=== PATIENT | male | born 1950 | race Caucasian/White ===

== ENCOUNTER 2016-07-30 03:58 | Inpatient (IN) | payer BC, MEDICARE ==
--- NOTE | ~2016-07-30 | OP ---
Record Of Operation [facility] [place]. [address] NAME: MILAN FOLEY : 46 STATUS : ADM IN PAT#: [id number] AGE: 66 ADM/REG DATE : 07/30/16 MR#: [id number] REPORT SERV DATE: 08/05/16 DICTATED BY: MORGAN VEGA DATE: 08/04/16 REPORT STATUS : Draft TRANSCRIBED BY: MODL DATE: 08/04/16 DATE OF PROCEDURE: 08/04/2016 ASSISTANTS: Deepak Anthony. ANESTHESIOLOGIST: Jonn Arias M.D. PREOPERATIVE DIAGNOSES: 1. Unstable angina. 2. Three-vessel coronary disease. 3. Chronic atrial fibrillation. 4. Chronic kidney disease stage IV, status post right nephrectomy. 5. Diabetes mellitus. 6. Morbid obesity. 7. Chronic obstructive pulmonary disease. 8. Hypertension. 9. Hyperlipidemia. 10.Obstructive sleep apnea. 11.Chronic anemia. POSTOPERATIVE DIAGNOSES: 1. Unstable angina. 2. Three-vessel coronary disease. 3. Chronic atrial fibrillation. 4. Chronic kidney disease stage IV, status post right nephrectomy. 5. Diabetes mellitus. 6. Morbid obesity. 7. Chronic obstructive pulmonary disease. 8. Hypertension. 9. Hyperlipidemia. 10.Obstructive sleep apnea. 11.Chronic anemia. OPERATION/PROCEDURE PERFORMED: 1. Median sternotomy. 2. Extracorporeal circulation. 3. Urgent coronary artery bypass grafting x4, left internal mammary artery, left anterior descending, reverse greater saphenous vein graft to ramus intermedius, reverse greater saphenous vein graft to posterior descending artery to PLB sequence graft. 4. Extensive right and left sided Maze, both cryo and PHILLIP or Shahid Maze IV. 5. Left atrial appendage ligation with a 15 mm left atrial appendage atrial clip. 6. Rigid external fixation of the sternum. 7. Prevena. 8. Attempted left subclavian Vas-Cath placement. COMPLICATIONS: None. Record Of Operation [facility] [address] [place]. [address] NAME: MILAN FOLEY : 48 STATUS : ADM IN PAT#: [id number] AGE: 66 ADM/REG DATE : 07/30/16 MR#: [id number] REPORT SERV DATE: 08/05/16 DICTATED BY: MORGAN VEGA DATE: 08/04/16 REPORT STATUS : Draft TRANSCRIBED BY: MODL DATE: 08/04/16 TUBES AND DRAINS: A 24-Moldovan Roberth to the left pleural space. A 32-Moldovan mediastinal chest tube. Atrial and ventricular pacing wires. POSTOPERATIVE CONDITION: To CVICU. DETAILS OF CROSS CLAMP: 85 minutes. Total cardiopulmonary bypass time 168 minutes. INTRAOPERATIVE FINDINGS: Transesophageal echo: Normal function, trace MR, no AI, no . Left atrium was approximately 5.5 to 6 cm. No clot in the left atrial appendage. Post bypass, the function was preserved. Anatomic findings extremely large heart. The aorta was very rightward in the chest. There were no graftable targets on the lateral wall and the obtuse marginal territory. He is not a redo candidate. I was unable to access the left subclavian vein. Multiple attempts were made with a needle; however, I was unable to find the vein. The right IJ and right subclavian vein were unable to be accessed by the anesthesiologist. The Brightwood was ultimately placed in the left IJ. DETAILS OF CARDIOPULMONARY BYPASS GRAFTIN. Graft #1, left internal mammary artery, left anterior descending was 1.75, diffusely diseased target that was intramyocardial. 2. Graft #2, reverse greater saphenous vein graft to ramus intermedius. This was a 2 mm target. 3. Reverse greater saphenous vein graft to posterior descending artery to posterolateral branch. PDA was 2 mm. PLB was approximately 1.75 mm. All grafts had excellent Doppler signals, both pre and post protamine. DETAILS OF STERNAL PLATING: The sternum was reapproximated using stainless steel sternal wires and then two X plates were placed on the body of the sternum and one L 100 degree plate was placed between the wires in the manubrium. A total of twenty 16 mm screws were used to place the plates. DETAILS OF MAZE: The Shahid Maze IV was done with a combination of RF and cryo. Pulmonary vein isolation was done with RF. The floor and roof of the left atrial appendage were done with cryo, the coronary sinus to mitral annulus. Lesion was done with cryo. The IVC to SVC lesion was done with cryo. The right atrial T lesion was done with cryo. The 2 o'clock tricuspid annulus lesion was done with cryo and a 50 mm left atrial appendage clip was placed on the left atrial appendage. INDICATIONS FOR PROCEDURE: The patient is a 66-year-old with a constellation of comorbid conditions, who presented to the hospital with unstable anginal symptoms and was found to have severe three-vessel coronary disease. Risks, benefits, and alternatives were discussed with the patient including but not limited to, bleeding, infection, stroke, , heart attack, need for future operations. All questions were answered. His M and M were calculated, a mortality of around 5%, STS mortality of about 5.8%, and a total morbidity and mortality of 45% were discussed with the patient. All questions were answered. DETAILS OF PROCEDURE: The patient was brought to the operating room and placed supine on the Record Of Operation [facility] [address] [facility] [place]. [address] NAME: MILAN FOLEY : 48 STATUS : ADM IN [facility]#: [id number] AGE: 66 ADM/REG DATE : 07/30/16 MR#: [id number] REPORT SERV DATE: 08/05/16 DICTATED BY: MORGAN VEGA DATE: 08/04/16 REPORT STATUS : Draft TRANSCRIBED BY: MOODY DATE: 08/04/16 operating room table. After satisfactory induction of general endotracheal anesthesia, he was prepped and draped in usual sterile fashion. Working simultaneously, endoscopic vein harvest was performed while median sternotomy was performed. A median sternotomy was performed. Internal mammary artery was harvested in a pedicle fashion. Systemic heparinization was achieved. The pericardium was opened. Pericardial well was created. The patient was cannulated for bypass. The conduit was brought up and prepared for bypass. Cardiopulmonary bypass was initiated after documentation of an adequate ACT. The maze lesions were performed as mentioned in the findings. After the completion of the maze lesions, the cross-clamp was brought up and the heart was arrested with cardioplegia and intermittent aliquots of cardioplegia were administered throughout the remainder of the cross clamp for every 15 to 20 minutes. The vein grafts were performed. The distal anastomoses were performed with 8-0 Surgipro. The reverse greater saphenous vein graft was sequenced to the posterior descending artery and the posterolateral branch. It was cut to length and spatulated and a running continuous anastomosis was done after making an aortotomy and enlarging it with a 5.2 mm punch. The reverse greater saphenous vein graft to the ramus intermedius was performed in the same fashion. The internal mammary artery was brought down through a wide V in the pericardium. The LAD was deep in the myocardium and epicardial fat was able to be found and was opened with what appeared to be an initially a relatively disease free area but was diffusely diseased along both lateral wall. A running continuous anastomosis was performed with 8-0 Surgipro. There was excellent flow in the graft proximal and distal to the anastomosis. The pedicle was attached to the heart in two places. The left atrial appendage clip was applied. Atrial and ventricular wires were placed. The vein grafts were de-aired, and the cross-clamp was removed. The patient was able to be weaned from cardiopulmonary bypass with a paced rhythm. Protamine was administered. PCC was administered as the patient had been on chronic Coumadin. INR was 1.7 this morning. Platelets were administered given the patient's coagulopathy, and hemostasis was obtained. The pericardium was loosely reapproximated using 2-0 silk. A 32- Moldovan chest tube was placed under the sternum. A 24-Moldovan Roberth was placed in the left pleural space. The sternum was reapproximated using stainless steel sternal wires and rigid external fixation of the sternum was performed using the SternaLock Biomet blue system as mentioned in the findings. The clavipectoral fascia was reapproximated using running #1 StrataFix. The subcutaneous tissues were closed using running #1 StrataFix and the skin closed using 2-0 Quill. Prevena dressing was placed. Attention was turned to the left subclavian area. The finer needle for the Vas-Cath was brought up and multiple attempts were made to access the subclavian vein through an infraclavicular approach and was unable to find the vein, ultimately abandoned the attempt as I did not want to cause vascular problems. Dry sterile dressings were placed, and the patient was transferred to CVICU in stable condition. WMC/MODL Morgan Vega MD / [id number] Record Of Operation [address] [place]. [address] NAME: MILAN FOLEY : 48 STATUS : ADM IN PAT#: [id number] AGE: 66 ADM/REG DATE : 07/30/16 MR#: [id number] REPORT SERV DATE: 08/05/16 DICTATED BY: MORGAN VEGA DATE: 08/04/16 REPORT STATUS : Draft TRANSCRIBED BY: MOODY DATE: 08/04/16 CC: MD Jonn Quan D.O.
--- NOTE | ~2016-07-30 | CN ---
Consultation Report [facility] [address] [place]. [address] NAME: DAVON FOLEY : 48 STATUS : ADM Kelvin PAT#: [id number] AGE: 66 ADM/REG DATE : 07/30/16 MR#: [id number] REPORT SERV DATE: 08/01/16 DICTATED BY: DATE: REPORT STATUS : Draft TRANSCRIBED BY: MODL DATE: 08/01/16 CONSULTATION DATE OF CONSULTATION: 08/01/2016 CHIEF COMPLAINT/REASON FOR CONSULT: High risk stress test. PRIMARY BEEKEEPER: Davon Anderson M.D., Ph.D, F.A.C.C. HISTORY OF PRESENT ILLNESS: Mr. Foley is a 66-year-old gentleman, who presented to the hospital, and was admitted on 07/30/2016, with chest discomfort. He states that on Sunday, he was mowing his grass and working in his garden, when he began to feel like somebody was sitting on his chest. He described this is 8 to 10/10 in intensity and was associated with shortness of breath. It was unclear duration, but he states that his symptoms started to improve after he came to the hospital. He notes a feeling of phlegm in his throat, but no chronic cough. PAST MEDICAL HISTORY: 1. Chronic atrial fibrillation on anticoagulation with Coumadin therapy. 2. Chronic kidney disease stage 3-4, baseline creatinine between 2.5 and 3.1. 3. History of renal cell carcinoma, status post right nephrectomy. The patient has a Gómez developed fistula on the left. 4. Diabetes mellitus. 5. Morbid obesity. 6. COPD. 7. Hypertension. 8. Hyperlipidemia. 9. Obstructive sleep apnea. 10.Anemia. 11.Chronic anticoagulation therapy. SOCIAL HISTORY: The patient is . His is present at the bedside. He denies smoking, drinking, or using extracurricular drugs. FAMILY HISTORY: Significant for father with a history of diabetes and hypertension. Mother with diabetes and hypertension, and a sister with myocardial infarction and history of breast cancer. ALLERGIES: NO KNOWN DRUG ALLERGIES. OUTPATIENT MEDICATIONS: 1. Bumetanide 1 mg twice per day. 2. Coreg 12.5 mg b.i.d. 3. Cetirizine. Consultation Report [facility] [id number] [place]. [address] NAME: DAVON FOLEY : 48 STATUS : ADM Kelvin PAT#: [id number] AGE: 66 ADM/REG DATE : 07/30/16 MR#: [id number] REPORT SERV DATE: 08/01/16 DICTATED BY: DATE: REPORT STATUS : Draft TRANSCRIBED BY: MOODY DATE: 08/01/16 4. Cholecalciferol. 5. Clotrimazole. 6. Fenofibrate 200 mg p.o. daily. 7. Oxycodone and acetaminophen. 8. Allopurinol. 9. Insulin, Levemir, and NovoLog. 10.Cozaar 100 mg p.o. daily. 11.Montelukast. 12.Multivitamin. 13.Protonix. 14.Pravastatin 40 mg p.o. daily. 15.Demadex 20 mg p.o. daily. 16.Iron. 17.Jantoven 3 mg p.o. daily. REVIEW OF SYSTEMS: All systems were reviewed and is negative except for dictated in the HPI. PHYSICAL EXAMINATION: VITAL SIGNS: Temperature 98.1, pulse 88, blood pressures range between 99 and 129/54 to 60, respirations 17, oxygen saturations 94% on room air. GENERAL: Mr. Foley is an irritable 66-year-old gentleman, who is in no distress. NECK: I could not appreciate jugular venous distention. No carotid bruits. HEART: Irregular, rate controlled. Soft S1 and S2. I could not appreciate murmurs, rubs, or gallops. LUNGS: Clear to auscultation in the anterior valdez. They are decreased bilaterally in the posterior valdez. ABDOMEN: Obese and nontender. I could not appreciate hepatosplenomegaly, due to body habitus. There is a reducible umbilical hernia noted. EXTREMITIES: Femoral pulses could not be palpated, due to body habitus. I could not appreciate femoral bruits. There is chronic venous induration noted bilaterally and +1 pitting edema bilaterally. NEUROLOGIC: I could not appreciate neurologic deficits. MUSCULOSKELETAL: No clubbing or cyanosis of the digits. DATA: A myocardial perfusion stress test performed that was a two day study finished on 08/01/2016, demonstrated posterolateral and apical ischemia, with a post infusion EF of 52%, with a high risk stress test. An EKG performed is extremely poor quality, but suggested atrial fibrillation that is rate controlled, an incomplete right bundle branch block, a left axis deviation, and poor R-wave progression. Laboratory results noted blood sugars between 256 and 404, white blood cell count 11.6, hemoglobin 11.8, hematocrit 35.9, platelet count 114, INR is 1.6, sodium 134, potassium 4, BUN 64, creatinine 3.01. Troponin 0.05 x2, BNP is 431, hemoglobin A1c is 8.3. A chest x-ray performed on admission documented cardiomegaly and low lung volumes. Consultation Report [facility] [id number] [place]. [address] NAME: DAVON FOLEY : 48 STATUS : ADM Kelvin PAT#: [id number] AGE: 66 ADM/REG DATE : 07/30/16 MR#: [id number] REPORT SERV DATE: 08/01/16 DICTATED BY: DATE: REPORT STATUS : Draft TRANSCRIBED BY: MOODY DATE: 08/01/16 IMPRESSION REPORT AND PLAN: 1. Anginal chest pain. 2. High risk stress test. 3. Chronic atrial fibrillation with subtherapeutic INR. 4. Uncontrolled diabetes mellitus. 5. Morbid obesity. 6. History of renal cell cancer, status post nephrectomy. 7. Chronic kidney disease, stage 3 to 4. 8. Hypertension. 9. Hyperlipidemia. RECOMMENDATIONS: 1. I discussed the risks, benefits, and alternatives of cardiac catheterization with the patient and his , who are agreeable to proceed at this time. 2. Would continue Coreg at this time. 3. Would hold Coumadin, Bumex, and torsemide at this time. 4. Would hold the patient's Cozaar, due to risk of progression and need for dialysis. 5. Decrease aspirin 81 mg p.o. daily. 6. The patient should he need dialysis, already he has a fully developed fistula via his left wrist. 7. Would keep n.p.o. after midnight. 8. I would request no LV-gram performed please. 9. Add low-dose Norvasc. 10.Additional recommendations pending clinical course. CULLEN/MOODY Charito Pedraza M.D. / [id number] CC: Antwan Gooden D.O.
--- NOTE | ~2016-07-30 | IDS ---
Interim Discharge Summary [facility] [address] [place]. [address] NAME: MILAN FOLEY : 48 STATUS : ADM IN PAT#: [id number] AGE: 66 ADM/REG DATE : 07/30/16 MR#: [id number] REPORT SERV DATE: 08/14/16 DICTATED BY: LISA HINDS DATE: 08/14/16 REPORT STATUS : Draft TRANSCRIBED BY: MODYvon DATE: 08/14/16 ADMISSION DATE: 07/30/2016 DISCHARGE DATE: This dictation is an addition to interim discharge summary dictated by Dr. Dominguez on 08/07/2016. I assumed care of the patient 08/08/2016. At the time of my assumption of care, the patient was status post CABG. The patient under my care has remained hemodynamically stable. Has been followed by CT Surgery. He continues to do well. Physical Therapy has also been seeing the patient. Per PT recommendation, the patient is to be discharged to rehab. Case Management has been consulted and currently working on placement for the patient. All other information in the interim discharge summary remains the same. DIEGO Lisa Hinds MD / [id number]
--- NOTE | ~2016-07-30 | PUL ---
[facility] [address] [place]. [address] NAME: MILAN FOLEY : 48 STATUS : ADM IN PAT#: [id number] AGE: 66 ADM/REG DATE : 07/30/16 MR#: [id number] REPORT SERV DATE: 08/04/16 DICTATED BY: EMILIA CRANE DATE: 08/04/16 REPORT STATUS : Draft TRANSCRIBED BY: MODL DATE: 08/04/16 PULMONARY FUNCTION TEST DIAGNOSIS: COPD. RESULTS: 1. FEV1 of 2.0 L (60% of predicted). 2. FVC 2.19 L (48% of predicted). 3. FEV1/FVC ratio of 92%. IMPRESSION: There is no evidence of obstruction. The forced vital capacity is reduced suggestive of restriction. PS/MODL Emilia Crane M.D. / [id number] CC: Loki Dominguez M.D.
--- NOTE | ~2016-07-30 | HP ---
History And Physical [address] [place]. [address] NAME: MILAN FOLEY : 48 STATUS : ADM Kelvin PAT#: [id number] AGE: 66 ADM/REG DATE : 07/30/16 MR#: [id number] REPORT SERV DATE: 07/30/16 DICTATED BY: ANTHONY DEJESUS DATE: 07/30/16 REPORT STATUS : Draft TRANSCRIBED BY: MODL DATE: 07/30/16 DATE OF ADMISSION: 07/30/2016 CHIEF COMPLAINT: A 66-year-old male presenting with shortness of breath and chest pain. HISTORY OF PRESENT ILLNESS: The patient's history was obtained through careful interview with the patient, , and daughter, coupled with review of [facility] medical records. The patient states that for a few days he has been having increasing shortness of breath characterized by dyspnea on exertion and a prominent wheeze. On the evening leading up to admission, he was running a tiller in his garden and began to develop chest pain as well. He describes chest discomfort at the center of his chest, radiating to the right side, quality "like someone sitting on me," 8/10 severity associated with worsening shortness of breath. He describes a nonproductive cough, some nausea, but no vomiting. No lightheadedness. No fevers or chills. He has chronic stable lymphedema. He claims his diabetes is under good control with blood sugars mostly under 200s. REVIEW OF SYSTEMS: Otherwise, a 14-point review of systems was obtained and was negative. PAST MEDICAL HISTORY: 1. Diabetes. 2. COPD. 3. Atrial fibrillation seen by Dr. Anderson. 4. Chronic kidney disease, stage 4. Baseline creatinine of 2.5 to 3.1, seen by Dr. Love. 5. Obstructive sleep apnea, noncompliant with CPAP, but uses nasal cannula oxygen. 6. Renal cell carcinoma of the right side status post nephrectomy in 2005. 7. Neuropathy. 8. Cellulitis. 9. DVT. 10.E. coli sepsis. 11.Gout. PAST SURGICAL HISTORY: 1. Right nephrectomy in 2005. 2. Left ankle surgery. 3. Spinal cord stimulator placement. 4. Left knee surgery. ALLERGIES: NO KNOWN DRUG ALLERGIES. History And Physical [address] [place]. [address] NAME: MILAN FOLEY : 48 STATUS : ADM Kelvin PAT#: [id number] AGE: 66 ADM/REG DATE : 07/30/16 MR#: [id number] REPORT SERV DATE: 07/30/16 DICTATED BY: ANTHONY DEJESUS DATE: 07/30/16 REPORT STATUS : Draft TRANSCRIBED BY: MOODY DATE: 07/30/16 SOCIAL HISTORY: Quit smoking more than 30 years ago. No alcohol abuse. He is . Has children. Retired from driving a truck. Ambulates with a cane. FAMILY HISTORY: Includes diabetes, blood clots, end-stage renal disease. CURRENT MEDICATIONS: 1. Allopurinol 100 mg p.o. b.i.d. 2. Bumex 1 mg p.o. b.i.d. 3. Coreg 12.5 mg p.o. daily. 4. Zyrtec 10 mg p.o. daily. 5. Vitamin D. 6. Clotrimazole cream. 7. Fenofibrate. 8. Hydrocodone 7.5 mg. 9. Sliding-scale insulin. 10.Levemir. 11.Losartan 100 mg p.o. daily. 12.Singulair 10 mg p.o. daily. 13.Multivitamin daily. 14.Protonix 40 mg p.o. daily. 15.Pravachol 40 mg p.o. daily. 16.Demadex 20 mg p.o. daily. 17.Iron supplement. 18.Coumadin 3 mg p.o. daily. PHYSICAL EXAMINATION: VITAL SIGNS: Temperature 98.2, pulse 97, blood pressure 109/56, respiratory rate 28, and O2 saturation 95% on room air. GENERAL: An ill-appearing male, in evidence of mild strain and distress because of breathing difficulty. HEENT: Pupils equal, round, and reactive to light. No conjunctival pallor. No scleral icterus. Nares are patent. Oropharynx is clear of obstruction. Moist mucous membranes. NECK: Trachea midline. No thyromegaly. LYMPH: No cervical lymphadenopathy. No supraclavicular lymphadenopathy. RESPIRATORY: Chronic sounding crackles throughout lung exam, and inspiratory and expiratory wheezes with upper respiratory rhonchi as well. No focal egophony. The patient has a labored respiratory effort. CARDIOVASCULAR: Regular rate and rhythm. No murmurs, rubs, or gallops. No extremity edema is appreciated other than chronic changes, right greater than left. ABDOMEN: Soft, nontender, and nondistended. Normal bowel sounds auscultated throughout. No hepatosplenomegaly. DERMATOLOGICAL: Warm and dry extremities. No pallor. No cyanosis. PSYCHIATRIC: Normal affect. Good mood. Alert and oriented x3. LABORATORY DATA: White blood cell count 14.5, hemoglobin 12.7, hematocrit 38.7, and platelets 140. History And Physical [address] [address] NAME: MILAN FOLEY : 48 STATUS : ADM Kelvin PAT#: [id number] AGE: 66 ADM/REG DATE : 07/30/16 MR#: [id number] REPORT SERV DATE: 07/30/16 DICTATED BY: ANTHONY DEJESUS DATE: 07/30/16 REPORT STATUS : Draft TRANSCRIBED BY: MODL DATE: 07/30/16 Sodium 137, potassium 4.7, chloride 102, bicarb 29, BUN 52, creatinine 2.74, and glucose 264. Troponin 0.05. INR 1.6. STUDIES: 1. Chest x-ray by my own evaluation shows chronic stable interstitial lung disease. 2. EKG by my own evaluation shows atrial fibrillation, left axis deviation, incomplete right bundle-branch block. ASSESSMENT AND PLAN: 1. Chronic obstructive pulmonary disease exacerbation. Place on IV Solu-Medrol, Duo nebulizers. 2. Systemic inflammatory response syndrome. Start empiric IV antibiotics, Levaquin. Check procalcitonin. 3. Chest pain. Check a nuclear cardiac stress test. Place on aspirin. 4. Chronic kidney disease, stage 4 with right nephrectomy. 5. Chronic atrial fibrillation. Check telemetry. Pharmacy to dose Coumadin. 6. Uncontrolled diabetes. Check hemoglobin A1c. Continue basal insulin and aggressive sliding scale insulin. KPL/MODL Anthony Dejesus M.D. / [id number] CC: Antwan Gambino D.O.
--- NOTE | ~2016-07-30 | CN ---
Consultation Report [facility] [address] [place]. [address] NAME: MILAN FOLEY : 46 STATUS : ADM Kevlin PAT#: [id number] AGE: 66 ADM/REG DATE : 07/30/16 MR#: [id number] REPORT SERV DATE: 08/03/16 DICTATED BY: EMILIA KELLEY DATE: 08/03/16 REPORT STATUS : Draft TRANSCRIBED BY: MODL DATE: 08/03/16 PULMONARY CONSULTATION DATE OF CONSULTATION: 08/03/2016 REASON FOR CONSULTATION: Preoperative evaluation and recommendations prior to CABG planned for tomorrow. HISTORY OF PRESENT ILLNESS: Mr. Foley is a 66-year-old white male, former smoker, with a history of obstructive sleep apnea-off CPAP for years and possible COPD-on no medications, who offers a very limited history today. Per the available medical record, he was admitted with shortness of breath and wheezing as well as chest pain. Evaluation including a cardiac evaluation revealed significant coronary artery disease, so CABG is planned tomorrow and Pulmonary was consulted for recommendations and preoperative evaluation. The patient currently denies shortness of breath and wheezing. He denies a history of shortness of breath, cough, sputum production, fever, chills, night sweats, hemoptysis, or prior chest pain. He reports good exercise tolerance and states he can "walk as far as I want to" without any dyspnea. He has been on no pulmonary medications as noted above and is unsure if he has ever been diagnosed with COPD. He denies ever being treated with inhalers and denies prior pulmonary function testing. With regard to his history of obstructive sleep apnea, he states he had a sleep study many years ago and was initially on CPAP. He did not have problems with tolerating CPAP with the mask, but states he "got tangled up in the machine." He continued to wear as prescribed until "they went out of business." It is unclear why he discontinued CPAP or how long he used it. He is unsure if he found it beneficial. He does complain of fatigue and hypersomnolence. He has had prior general anesthesia and denies any associated pulmonary issues. He states his last general anesthesia was "years" ago. He is unable to give further details. PAST MEDICAL HISTORY: 1. Obstructive sleep apnea, off CPAP as described above. 2. Former smoker. 3. Possible COPD. 4. Atrial fibrillation. 5. Chronic kidney disease. 6. Diabetes mellitus. 7. Renal cell carcinoma with right nephrectomy in 2005. 8. Peripheral neuropathy. 9. Previous DVT. 10.Gout. 11.Prior left ankle surgery. 12.Left total knee arthroplasty. Consultation Report [facility] [id number] [place]. [address] NAME: MILAN FOLEY : 46 STATUS : ADM Kelvin PAT#: [id number] AGE: 66 ADM/REG DATE : 07/30/16 MR#: [id number] REPORT SERV DATE: 08/03/16 DICTATED BY: EMILIA KELLEY DATE: 08/03/16 REPORT STATUS : Draft TRANSCRIBED BY: MODL DATE: 08/03/16 13.Spinal cord stimulator implantation. 14.Hyperlipidemia. 15.Hypertension. 16.History of anemia. 17.Previous E coli sepsis. FAMILY HISTORY: He denies family history of pulmonary diseases. SOCIAL HISTORY: He smoked up to three packs of cigarettes per day for more than 10 years and quit approximately 30 years ago. He denies ethanol intake, past/present drug use, or chewing tobacco. He denies occupational exposures. He is and has two daughters. MEDICATIONS: Outpatient and inpatient medications were reviewed and are as documented in the record. He was on no pulmonary medications as an outpatient. ALLERGIES: HE DENIES MEDICATION ALLERGIES. REVIEW OF SYSTEMS: A limited system review was obtained and is as documented in the history of present illness. PHYSICAL EXAMINATION: VITAL SIGNS: Temperature 97.9 degrees, heart rate 70, blood pressure 147/60, respiratory rate 18, and oxygen saturation 94% on room air. GENERAL: Obese white male. Alert, oriented, no apparent distress. Lying in the bed. Speaking in full sentences. HEENT: Normocephalic. Atraumatic. There is no scleral icterus. The conjunctivae are clear. The oropharynx is clear and dry. NECK: Supple. No JVD or lymphadenopathy was noted. LUNGS: Fair effort. Diminished breath sounds at both bases. There are scattered faint expiratory wheezes in the upper lung valdez. There are no crackles or rhonchi. HEART: Regular rate and rhythm. No ectopy was noted. ABDOMEN: Obese. Soft. Nontender. There is mild distention. Bowel sounds are normal in all four quadrants. BILATERAL EXTREMITIES: There is 1+ pretibial edema with extensive stasis skin changes. There is no cyanosis or clubbing. NEUROLOGICAL: Limited exam was obtained and found to be nonfocal. SKIN: No acute rashes were noted. LABORATORY RESULTS: The labs were reviewed and are as documented in the record. Notable labs include a white blood cell count of 5.3. IMAGING: The chest x-ray done today revealed cardiomegaly, but no infiltrates or effusions. ASSESSMENT: Mr. Foley is a 66-year-old white male, former smoker, with a history of obstructive sleep apnea-on CPAP, and probable chronic obstructive pulmonary disease who is Consultation Report [facility] [id number] [facility] [place]. [address] NAME: MILAN FOLEY : 46 STATUS : ADM Kelvin PAT#: [id number] AGE: 66 ADM/REG DATE : 07/30/16 MR#: [id number] REPORT SERV DATE: 08/03/16 DICTATED BY: EMILIA KELLEY DATE: 08/03/16 REPORT STATUS : Draft TRANSCRIBED BY: MOODY DATE: 08/03/16 actively wheezing. A CABG is planned for tomorrow. He is at [id number] risk for postoperative pulmonary complications at this time, but would improve with additional pulmonary medications. This assessment is based on available information, and as noted, no prior pulmonary function testing is available. PLAN: 1. Recommend stating the patient on a nebulized steroid today. Budesonide 0.5 mg q.12 hours will be added to his regimen. 2. Scheduled DuoNeb every four hours. 3. Improve pulmonary toilet - EzPAP will be added to his regimen. He should have an incentive spirometer postoperatively. 4. I recommend DuoNeb or albuterol via nebulization just prior to induction of anesthesia. 5. I recommend supporting the patient with BiPAP if needed after extubation. 6. Supplemental oxygen should be added if the patient develops any hypoxia. 7. I recommend he have a bedside spirogram today if possible, but this should not change his recommendations or prevent him from having surgery. 8. We will request an overnight oximetry on room air tonight to assess for possible nocturnal hypoxia and evaluate for sleep apnea. He should have an outpatient polysomnogram after discharge. Thank you very much for this consultation. JAME/MOODY Emilia Kelley M.D. / [id number] CC: Antwan Gooden D.O.
--- NOTE | ~2016-07-30 | CN ---
Consultation Report [facility] [address] [place]. [address] NAME: MILAN FOLEY : 46 STATUS : ADM Kelvin PAT#: [id number] AGE: 66 ADM/REG DATE : 07/30/16 MR#: [id number] REPORT SERV DATE: 08/02/16 DICTATED BY: ARVIN REAL DATE: 08/02/16 REPORT STATUS : Draft TRANSCRIBED BY: MODL DATE: 08/02/16 CONSULT REPORT DATE OF CONSULTATION: 08/02/2016 REASON FOR CONSULTATION: Multivessel coronary artery disease. HISTORY OF PRESENT ILLNESS: This is a 66-year-old male with extensive past medical history including insulin-dependent type 2 diabetes mellitus, hypertension, obesity, COPD, CKD stage 4 with solitary kidney, atrial fibrillation on chronic Coumadin, and hyperlipidemia, who presented to the emergency room on 07/30/2016, with chest pain and mildly elevated troponin. He had a stress test performed on 07/31/2016, which was considered abnormal and he was taken to the cardiac catheterization today and found to have severe multivessel coronary artery disease including a 75% stenosis to his left main coronary artery; 50% proximal and 90% mid LAD stenosis; 100% stenosis to his first diagonal; 99% stenosis to his proximal left circumflex; 50% proximal to 75% distal RCA stenosis; 75% right PDA and 75% first RPO. LV gram was not performed due to the patient's chronic kidney disease and elevated creatinine. Ejection fraction per myocardial perfusion imaging scan was around 52%. Cardiothoracic Surgery was asked to evaluate the patient for coronary artery bypass grafting. Currently, the patient is recovering after arteriogram with no complaints of chest pain or shortness of breath. His and daughter are with him at the bedside. PAST MEDICAL HISTORY: 1. Insulin-dependent diabetes. 2. High blood pressure. 3. Obesity. 4. Obstructive sleep apnea. 5. COPD. 6. CKD stage III to stage IV. 7. Renal cell carcinoma, status post right nephrectomy. 8. Hyperlipidemia. 9. Anemia. 10.Chronic atrial fibrillation, on Coumadin. PAST SURGICAL HISTORY: Right nephrectomy in 2005. Left ankle surgery. Spinal cord stimulator. Left total knee arthroplasty. SOCIAL HISTORY: He is . Unemployed. No alcohol abuse, use of illicit drugs, or tobacco. FAMILY HISTORY: Type 2 diabetes mellitus, end-stage renal disease, and blood clots. ALLERGIES: NO KNOWN DRUG ALLERGIES. Consultation Report [facility] [address] [place]. [address] NAME: MILAN FOLEY : 46 STATUS : ADM Kelvin PAT#: [id number] AGE: 66 ADM/REG DATE : 07/30/16 MR#: [id number] REPORT SERV DATE: 08/02/16 DICTATED BY: ARVIN REAL DATE: 08/02/16 REPORT STATUS : Draft TRANSCRIBED BY: MOODY DATE: 08/02/16 HOME MEDICATIONS: 1. Allopurinol 100 mg p.o. twice a day. 2. Bumex 1 mg p.o. twice a day. 3. Carvedilol 12.5 mg p.o. daily. 4. Zyrtec 10 mg p.o. daily. 5. Vitamin D3 2000 units p.o. daily. 6. Clotrimazole as directed. 7. Lipofen 200 mg p.o. daily. 8. Hycet 7.5/325 as needed. 9. Insulin FlexPen as directed. 10.Levemir insulin as directed at bedtime. 11.Losartan 100 mg p.o. daily. 12.Singulair 10 mg p.o. daily. 13.Centrum 1 tab p.o. daily. 14.Protonix 40 mg p.o. daily. 15.Pravachol 40 mg p.o. at bedtime. 16.Demadex 20 mg p.o. daily. 17.Iron tablet 65 mg p.o. daily. 18.Warfarin 3 mg p.o. daily. REVIEW OF SYSTEMS: A 10-point review of systems was obtained and is negative other than HPI. PHYSICAL EXAMINATION: VITAL SIGNS: From today, temperature 97.5, heart rate 67, blood pressure 143/64, respiratory rate 20, and O2 saturation 94% on room air. GENERAL: Morbidly obese male, ill appearing, but in no acute distress. PSYCHIATRIC: Flat affect, talkative, and pleasant. NEUROLOGIC: Alert and oriented x3. Pupils are equal, round, and reactive to light and accommodation. He exhibits equal strength in bilateral upper extremities and bilateral lower extremities. HEENT: Head normocephalic and atraumatic. Sclerae clear. Nose midline with no abnormalities. Good dentition overall. NECK: Supple with no thyromegaly or lymphadenopathy. LUNGS: Clear to auscultation bilaterally. Diminished bases. CARDIAC: S1 and S2 with no murmurs, rubs, or gallops. Atrial fibrillation. ABDOMEN: Soft, obese, and nontender with active bowel sounds. EXTREMITIES: Free of cyanosis or clubbing. He has discoloration of his legs bilaterally distal to the knees with 1+ pitting edema. LAB DATA: White blood cell count 8.2, hemoglobin 12.2, hematocrit 37, and platelets 142. Sodium 136, potassium 4.2, chloride 103, bicarbonate 23, BUN 99, creatinine 2.6, and glucose 169. ASSESSMENT AND PLAN: This is a 66-year-old male with extensive past medical history as Consultation Report [address] [address] NAME: MILAN FOLEY : 46 STATUS : ADM Kelvin PAT#: [id number] AGE: 66 ADM/REG DATE : 07/30/16 MR#: [id number] REPORT SERV DATE: 08/02/16 DICTATED BY: ARVIN REAL DATE: 08/02/16 REPORT STATUS : Draft TRANSCRIBED BY: MOODY DATE: 08/02/16 mentioned above, admitted with chest pain, found to have severe wawj-sd-gikz vessel coronary artery disease, needs coronary artery bypass grafting. Currently awaiting echocardiogram and carotid ultrasound. I discussed the risks and benefits of coronary artery bypass grafting with the patient as well as his STS risk scores. STS risk stratification for him and this particular surgery include an overall mortality of 5.6% and a morbidity mortality of 42%. I discussed these findings in relation to his need for surgery and his expectations for recovery. The patient is willing to proceed; however, I will need to talk to Dr. Izaguirre as the patient is high risk. As for now, we will go ahead and get Nephrology to evaluate the patient as he has a history of chronic kidney disease and is likely to advance to end-stage renal disease. He does have a functioning left functioning fistula in his left forearm. We will also get bilateral lower extremity venous mapping to evaluate for a conduit. Thank you for the consultation. LAQUITA/MOODY Arvin Real NP / [id number] CC: Antwan Gooden D.O.
--- NOTE | ~2016-07-30 | IDS ---
Interim Discharge Summary [facility] [address] [place]. [address] NAME: MILAN FOLEY : 46 STATUS : ADM IN [facility]#: [id number] AGE: 66 ADM/REG DATE : 07/30/16 MR#: [id number] REPORT SERV DATE: 08/07/16 DICTATED BY: ELEANOR HENRIQUEZ DATE: 08/07/16 REPORT STATUS : Draft TRANSCRIBED BY: MODL DATE: 08/07/16 ADMISSION DATE: 07/30/2016 DISCHARGE DATE: CURRENT HOSPITAL DIAGNOSES: 1. Coronary artery disease, three-vessel disease, status post CABG x4 with right and left- sided maze. 2. Chronic atrial fibrillation. 3. Chronic kidney disease. 4. Chronic obstructive pulmonary disease. 5. Hypertension. CONSULTATIONS: Pulmonary, Cardiothoracic Surgery, EP, and Renal. PROCEDURES: 1. Abovementioned CABG with maze on 08/04. 2. Myocardial perfusion scan on 07/31, showing an EF of 52%. Posterolateral and apical ischemia noted. 3. Cardiac catheterization done on 08/02. 4. Echocardiogram done on 08/03, showing a normal LV systolic function, EF 55%, dilated left atrium, mild MR, normal right ventricular chamber size and systolic function. 5. Carotid done on 08/03, showing right carotid artery category 2 moderate stenosis, 50% to 69% stenosis; left category 1, less than 50%. CURRENT PHYSICAL FINDINGS AND HISTORY OF PRESENT ILLNESS: Please see initial dictated H and P by Dr. Jasso. In brief, the patient is a 66-year-old male with above medical history, who presented initially on 07/30 with complaints of chest pain and shortness of breath. Vital signs at the time of presentation 129/64, temp was 98.2. Laboratory, initial BMP showed a procalcitonin of 1.22. Initial creatinine was 2.74. Initial troponin was 0.05 with a repeat of 0.05. A1c was 8.3. BNP was 431. White count was 14.5, H and H were 12.7 and 35.2. INR was 1.6. Urinalysis was unremarkable. Chest x-ray showed mild vascular congestion. HOSPITAL COURSE: The patient was initially admitted with above diagnosis. He was initially in observation to Dr. Ventura, who felt he had a COPD exacerbation along with his complaint above. He was started on IV fluids, sliding scale insulin, Levaquin IV, aspirin, Solu- Medrol, and DuoNebs as well as electrolyte protocol. Dr. Ventura saw him the following day. Antibiotics and IV fluids were stopped, Levemir and NovoLog were changed, and he was given some Bumex. He was also continued on Coumadin with pharmacy to monitor. The following day, additional titration of his Levemir was done, and continued titration of his insulin was required. I took over his care on 08/01. His stress test had returned a high probability. Dr. Pedraza for Cardiology was consulted. It was recommended to proceed with cardiac catheterization, which the patient was agreeable to. Post cardiac cath, he was noted to have significant coronary disease. He was placed on heparin, and Cardiothoracic Surgery was consulted. Venous mapping, carotid ultrasound, echocardiogram, and consult to Pulmonary were requested and his Coumadin was held. Renal was also consulted to maximize his Interim Discharge Summary [address] [place]. [address] NAME: MILAN FOLEY : 46 STATUS : ADM IN PAT#: [id number] AGE: 66 ADM/REG DATE : 07/30/16 MR#: [id number] REPORT SERV DATE: 08/07/16 DICTATED BY: ELEANOR HENRIQUEZ DATE: 08/07/16 REPORT STATUS : Draft TRANSCRIBED BY: MOODY DATE: 08/07/16 situation prior to proceeding with bypass, which the patient underwent without significant difficulty. He was able to come off the vent easily. His only postop difficulty has been being pacer dependent. EP is currently seeing. Renal continued to follow, diurese, maintain urine output. Creatinine is rising, but they are following. He is maintained on an insulin drip postop, but is since transitioned back to nearly the full amount of his prior sliding scale. CURRENT PLAN AND DISPOSITION: He is still in the ICU pending resolution of his pacer dependency. He is tolerating p.o. Blood sugars are reasonably controlled. Renal is diuresing and following his creatinine. Cardiology and EP will continue to follow him for the heart issues. He has had no difficulty with COPD, and he will be transferred to the floor for continued care when he is no longer pacer dependent. RICKYF/MOODY Eleanor Henriquez M.D. / [id number] CC: Antwan Gooden D.O.
--- NOTE | ~2016-07-30 | CN ---
Consultation Report [facility] [address] [place]. [address] NAME: MILAN FOLEY : 46 STATUS : ADM Kelvin PAT#: [id number] AGE: 66 ADM/REG DATE : 07/30/16 MR#: [id number] REPORT SERV DATE: 08/02/16 DICTATED BY: LISA LOVE DATE: 08/02/16 REPORT STATUS : Draft TRANSCRIBED BY: MODL DATE: 08/02/16 CONSULTATION DATE OF CONSULTATION: 08/02/2016 REASON FOR CONSULTATION: CKD, stage 4. HISTORY OF PRESENT ILLNESS: Mr. Foley is a 66-year-old white male followed in our office by Dr. Love for CKD, stage 4. He has an AV fistula in place to the left wrist, and patient apparently has a baseline creatinine around 2.5, was in office last week and creatinine was 2.5 at that point, it is 2.5 today. He presented to the hospital with shortness of breath and chest pain. A stress test was undertaken which was high risk, therefore he underwent heart catheterization and found to have multivessel coronary artery disease today, he need a bypass which is going to take place next week. He states he has been doing well recently until this chest pain came on him. No dysuria or hematuria. No problems with worsening edema. PAST MEDICAL HISTORY: CKD stage 4, right nephrectomy for renal oncocytoma, diabetes, osteoarthritis, atrial fibrillation, morbid obesity, coronary artery disease, COPD, hyperlipidemia, hypertension, obstructive sleep apnea, and anemia. He has a left AV fistula in place. FAMILY MEDICAL HISTORY: No end-stage renal disease. Positive for hypertension, diabetes, and cardiovascular disease. SOCIAL HISTORY: He is , lives with . Has a history of tobacco use, [id number]. No alcohol or illicit drug use. ALLERGIES: NONE. MEDICATIONS: At the time of consultation, Zyloprim, Norvasc, aspirin, Lipitor, Bumex, Coreg, vitamin D, Lofibra, ferrous sulfate, guaifenesin, Claritin, Singulair, Theragran, Protonix, Pravachol, and Levemir. REVIEW OF SYSTEMS: 12-point review of systems obtained and negative with the exception that in HPI. PHYSICAL EXAMINATION: VITAL SINGS: Temperature 97.5, blood pressure 100/55, pulse 60, respiratory rate 16, O2 sats 98%. GENERAL: This is a pleasant, cooperative, overweight white male. He is awake, alert, and oriented x3. No acute distress. Answers questions appropriately. HEENT: Normocephalic and atraumatic. Conjunctivae clear. Sclerae anicteric. Pupils are equal and round. Oral mucosa is dry. Consultation Report [facility] [address] [place]. [address] NAME: MILAN FOLEY : 46 STATUS : ADM Kelvin PAT#: [id number] AGE: 66 ADM/REG DATE : 07/30/16 MR#: [id number] REPORT SERV DATE: 08/02/16 DICTATED BY: LISA LOVE DATE: 08/02/16 REPORT STATUS : Draft TRANSCRIBED BY: MOODY DATE: 08/02/16 NECK: Supple, thick. No neck vein distention. No lymphadenopathy. LUNGS: Respirations even and unlabored. Breath sounds clear to auscultation. HEART: Rate is regular. Heart tones distant. No murmur, rub, or gallop. ABDOMEN: Obese, soft and nontender. Bowel sounds active. No CVA tenderness. EXTREMITIES: With discoloration of peripheral vascular disease, with mild edema. No unusual rashes or skin lesions. NEURO: No focal deficits. Mood and affect, pleasant and appropriate. PERTINENT LABS AND X-RAYS: Sodium 136, potassium 4.2, chloride 103, CO2 of 23, BUN of 99, creatinine of 2.5, calcium 9.7. Total cholesterol 153 LDL 97, HDL 21, triglycerides 179. WBCs 8.2, H and H 12 and 37, platelets 142,000. IMPRESSION: 1. Chronic kidney disease, stage 4. 2. Multivessel coronary artery disease. 3. Left forearm AV fistula. 4. Solitary kidney. 5. Diabetes. 6. Hypertension. 7. Chronic obstructive pulmonary disease. PLAN: Kidney function is currently at baseline. We will follow lab work and urinary output post catheterization and plan is for bypass early next week. We will follow along with you. Losartan has already been placed on hold as Demadex. We will follow along with you. I did discuss the risk for progression to end-stage renal disease with bypass. We will follow along with you. Thank you for the consultation. DICTATED BY: MAXIME Osborn/MODL Lisa Love M.D. / [id number] CC: Antwan Gooden D.O.
--- NOTE | ~2016-07-30 | CN ---
Consultation Report [facility] [address] [place]. [address] NAME: DAVON FOLEY : 46 STATUS : ADM IN PAT#: [id number] AGE: 66 ADM/REG DATE : 07/30/16 MR#: [id number] REPORT SERV DATE: 08/07/16 DICTATED BY: NIMESH POWERS DATE: 08/07/16 REPORT STATUS : Draft TRANSCRIBED BY: MODL DATE: 08/07/16 ELECTROPHYSIOLOGY CONSULTATION DATE OF CONSULTATION: REQUESTING PROVIDER: Dr. Izaguirre. INDICATIONS: Bradycardia after Shahid-Maze IV. HISTORY OF PRESENT ILLNESS: Davon Foley is a 66-year-old man who was admitted on 07/30/2016 with COPD exacerbation. He went on to have a stress test that was read as a high risk study, went on to have coronary arteriography, bypass grafting and a Shahid-Maze IV. He has had postoperative ventricular pacing and Electrophysiology is consulted to evaluate for possible pacemaker. The patient does appear to have some chronic ongoing shortness of breath. No angina. He has fatigue and low energy. His underlying rhythm on the pacing wires is sinus bradycardia at 67 beats per minute with a first-degree AV delay and left axis deviation, right bundle-branch block conduction pattern. PAST MEDICAL HISTORY: Chronic atrial fibrillation, COPD, diabetes, solitary kidney, chronic kidney disease, recent diagnosis of CAD. MEDICATIONS: Allopurinol, amiodarone which is on hold, aspirin, Lipitor, fenofibrate, guaifenesin, insulin, Lopressor which is on hold, topical nitroglycerin, Protonix, Pravachol, Senokot, and Orazinc. SOCIAL HISTORY: No smoking. No alcohol. FAMILY HISTORY: Notable for diabetes and hypertension. REVIEW OF SYSTEMS: As per the HPI. Otherwise, all review of systems negative. PHYSICAL EXAMINATION: VITAL SIGNS: Blood pressure 123/93, pulse 98.9, respiratory rate is 18. GENERAL: Appears stated age, no distress. EYES: Sclerae anicteric, no arcus senilis. MOUTH: Oral mucosa moist, lips acyanotic. NECK: Jugular venous pressure normal, no carotid bruits. LUNGS: Have diffusely diminished breath sounds. CARDIAC: Regular. Mild bradycardia. Rub present. ABDOMEN: Obese, soft, nondistended, nontender. EXTREMITIES: Have 2+ edema. SKIN: Warm and dry. NEURO/PSYCH: Alert and oriented, nonfocal, mood appropriate. Consultation Report [facility] [address] [place]. [address] NAME: DAVON FOLEY : 46 STATUS : ADM IN PAT#: [id number] AGE: 66 ADM/REG DATE : 07/30/16 MR#: [id number] REPORT SERV DATE: 08/07/16 DICTATED BY: NIMESH POWERS DATE: 08/07/16 REPORT STATUS : Draft TRANSCRIBED BY: MODL DATE: 08/07/16 ELECTROCARDIOGRAM: Sinus rhythm, first-degree AV delay, right bundle-branch block conduction pattern, left axis deviation. DATA: Creatinine is 3.46, potassium is 5.3, hemoglobin is 9.5. IMPRESSION: 1. Sinus bradycardia after Shahid-Maze IV. 2. Chronic atrial fibrillation. 3. Coronary artery disease with bypass grafting. 4. Diabetes. 5. Chronic obstructive pulmonary disease. 6. Chronic kidney disease. RECOMMENDATIONS: Remain off metoprolol and amiodarone. Follow rhythm and rate. Hopefully avoid pacemaker. I have discussed the possibility with the family and patient. Repeat ECG in the a.m. GKB/MODL Nimesh Powers M.D. / [id number] CC: Antwan Gooden D.O.
--- NOTE | ~2016-07-30 | DS ---
Discharge Summary [facility] [address] [place]. [address] NAME: MILAN FOLEY : 46 STATUS : ADM IN PAT#: [id number] AGE: 66 ADM/REG DATE : 07/30/16 MR#: [id number] REPORT SERV DATE: 08/15/16 DICTATED BY: ELEANOR HENRIQUEZ DATE: 08/15/16 REPORT STATUS : Draft TRANSCRIBED BY: MODL DATE: 08/15/16 ADMISSION DATE: 07/30/2016 DISCHARGE DATE: 08/15/2016 FINAL HOSPITAL DIAGNOSES: 1. Coronary artery disease, status post CABG, status post maze. 2. Chronic atrial fibrillation. 3. Chronic kidney disease. 4. Chronic obstructive pulmonary disease. 5. Hypertension. CONSULTATIONS AND PROCEDURES: As dictated on interim summary on 08/07 by myself and 08/[address] Zuleta. CURRENT PHYSICAL FINDINGS AND HISTORY OF PRESENT ILLNESS: Please see initial dictated H and P by Dr. Jasso on 07/30 as well as above interim summaries already noted on 08/07 and 08/14. Back over the patient's care on 08/15 and will dictate from that point. The patient was approximately 10 days post bypass. Renal function had been stable with a creatinine today of 2.33, and admission creatinine was 2.74. He had recuperated well from his bypass and was ambulatory greater than 40 feet with PT. He was re-anticoagulated with Coumadin, although his INR was noted to be gradually rising. He was rate controlled on his Cordarone. [facility] was slowly titrating up his Coreg. Discussed with the patient and his , they feel they have adequate assistance and ability for caregivers at home. He did not wish to leave here from rehab. Pending any final recommendations from Nephrology and Cardiology, the patient will be discharged later today. DISPOSITION: He will be discharged home with home health and home PT. Followups will be arranged for [facility] Nephro and Cardiothoracic Surgery. He will follow up with his PCP thereafter. Arrangements are being made with [facility] for his Coumadin dose, followup INR, and continuation of his Cordarone. DISCHARGE MEDICATIONS: Other medications will be Plavix 75 one per day, hydrocodone 5/325 q.6 p.r.n. Prescriptions were written by myself for Lipitor 40 one per day, Cordarone 200 one per day, and Coreg 6.25 b.i.d. Other home medications will be allopurinol 100 b.i.d., vitamin C 1000 b.i.d., aspirin 81 one per day, Lipitor 40 one per day. He will discontinue his Pravachol 40. Cordarone 200 one per day, Coreg 6.25 b.i.d., vitamin D 2000 one per day, fenofibrate 200 one per day, insulin sliding scale level 3 with 5 units prior to meals, Zyrtec 10, Singulair 10, Protonix 40, Senokot p.r.n., Demadex 20 b.i.d., Levemir 20 b.i.d., multivitamin, iron, and [id number] athlete's foot cream. He will not resume his Cozaar at this time. DICTATED BY: Eleanor Henriquez M.D. TLF/MOODY Discharge Summary [address] [address] NAME: MILAN FOLEY : 46 STATUS : ADM IN PAT#: [id number] AGE: 66 ADM/REG DATE : 07/30/16 MR#: [id number] REPORT SERV DATE: 08/15/16 DICTATED BY: ELEANOR HENRIQUEZ DATE: 08/15/16 REPORT STATUS : Draft TRANSCRIBED BY: MOODY DATE: 08/15/16 Eleanor Henriquez M.D. / [id number] CC: MD Jonn Capellan D.O.
--- NOTE | ~2016-07-30 | PUL ---
[facility] [address] [place]. [address] NAME: MILAN FOLEY : 46 STATUS : ADM IN [facility]#: [id number] AGE: 66 ADM/REG DATE : 07/30/16 MR#: [id number] REPORT SERV DATE: 08/04/16 DICTATED BY: EMILIA CRANE DATE: 08/04/16 REPORT STATUS : Draft TRANSCRIBED BY: MODL DATE: 08/04/16 PULMONARY FUNCTION TEST OVERNIGHT OXIMETRY REPORT. START DATE OF TESTIN08/03/2016. END DATE OF TESTIN08/04/2016. COMMENTS: Testing was conducted with the patient breathing room air. The patient stated he did not sleep all night due to nursing interruptions. RESULTS: Total valid sampling time 5 hours 47 minutes and 40 seconds. Total time with an oxygen saturation less than 88% was 46 seconds. Oxygen desaturation event index 6.4. IMPRESSION: There was no significant desaturation during this study conducted with the patient breathing room air. The oxygen desaturation index was elevated suggestive of possible obstructive sleep apnea. Recommend sleep study to confirm if clinically indicated. As noted above, the patient did not sleep throughout the study. May benefit from repeat testing. PS/MOODY Emilia Crane M.D. / [id number] CC: Loki Dominguez M.D.
[2016-07-30 03:13] LABS: BASOPHILS 0.1 %; BASOPHILS ABSOLUTE 0.01 10/3/uL (0.0-0.16); EOSINOPHILS 0.1 %; EOSINOPHILS ABSOLUTE 0.02 10/3/uL (0.0-0.53); HEMATOCRIT 38.7 % (40.0-51.0); HEMOGLOBIN 12.7 g/dL (13.6-17.8); IMMATURE GRANULOCYTES 0.3 %; IMMATURE GRANULOCYTES ABSOLUTE 0.04 10/3/uL (0.0-0.11); LYMPHOCYTES 7.7 %; LYMPHOCYTES ABSOLUTE 1.11 10/3/uL (0.67-4.30); MEAN PLATELET VOLUME 11.2 fL (9.2-13.0); MONOCYTES 5.7 %; MONOCYTES ABSOLUTE 0.82 10/3/uL (0.21-1.20); NEUTROPHILS 86.1 %; NEUTROPHILS ABSOLUTE 12.48 10/3/uL (2.02-8.40); PLATELET COUNT 140 10/3/uL (150-400); RBC DISTRIBUTION WIDTH 15.3 % (12.0-16.0)
[2016-07-30 03:15] LABS: ER CBC TAT 0 Hrs 05 Mins; MANUAL DIFF NO %; MEAN CORPUS HGB CONC 32.8 g/dL (32.0-36.0); MEAN CORPUSCULAR HEMOGLOB 32.8 pg (26.0-34.0); RED CELL COUNT 3.87 10/6/uL (4.7-6.1); WHITE BLOOD CELLS 14.5 10/3/uL (4.5-10.5)
[2016-07-30 03:22] LABS: INTERNATIONAL NORMAL RATI 1.6 UNITS (-); PARTIAL THROMBO TIME 34.2 SEC (22.5-37.2); PROTIME (NOT ORD) 18.6 SEC (12.0-14.5)
[2016-07-30 03:30] LABS: BUN (BLOOD UREA NITROGEN) 52 MG/DL (6-23); CALCIUM, SERUM 9.4 MG/DL (8.5-10.4); CHLORIDE, SERUM 102 MMOL/L (96-112); CO2 (CARBON DIOXIDE) 29 MMOL/L (24-34); CREATININE 2.74 MG/DL (0.70-1.30); GFR AFRICAN AMERICAN 26 ML/MIN (>=60); GFR NON AFRICAN AMERICAN 23 ML/MIN (>=60); POTASSIUM, SERUM 4.7 MMOL/L (3.5-5.3); SODIUM, SERUM 137 MMOL/L (135-148)
[2016-07-30 03:31] LABS: CHEST PAIN PROFILE TAT 0 Hrs 21 Mins; GLUCOSE, SERUM 264 MG/DL (60-99); TROPONIN I 0.05 NG/ML (<0.05)
[~2016-07-30 03:58] MED LIST: ACTOS30 PO; AT25 PO; BUM1 PO; BUM2; BYETTA SC; BYETTA10 SC; CADUET10 MG/10 M PO; CARDU2 PO; CELEXA10 PO; CENTRUM TAB1 TAB PO; CINAMMON PO; COREG12 PO; COZ50 PO; DEMA10T PO; DEMA20 PO; DIABET2.5 PO; DIABETA5 PO; GLUCCHONDR PO; HYZAAR 100/25 T1 TAB PO; IRON325 MG PO; JANTOVEN4 MG PO; LEVEMFLXPN SC; LEVEMIR SC; LEXAPRO10 PO; LOFIBRA200 MG PO; LORT7 PO; LOZOLTAB PO; MULTI VIT; NEUR100 PO; NORCO1 TA2 PO; NORV10 PO; NOVOPEN SC; OSTEO BIFLEX; PRAVAC PO; PRAVACHOL40 MG PO; PROTONIX PO; ROCALTROL 0.0.25 MCG PO; ROCALTROL0.25 MCG OR; STARLIX120 PO; VIT D; VITAMIN D1000 UNI1 PO; VITAMIN D31000 UNIT PO; VITAMIN D400 UNI1 PO; [UNRECOGNIZED DRUG - OTHER] PO
[2016-07-30] MEDS ORDERED: DEMA20 PO ×2 (04:50→05:12)
[2016-07-30] MEDS ORDERED: SINGULAIR1 PO ×2 (04:50→05:13)
[2016-07-30] MEDS ORDERED: PROTONIX PO ×2 (04:51→05:13)
[2016-07-30] MEDS ORDERED: COREG12 PO ×2 (04:51→05:13)
[2016-07-30] MEDS ORDERED: LIPOFEN50 MG PO ×2 (04:56→05:14)
[2016-07-30] MEDS ORDERED: LOSARTAN POTASSIUM PO (04:57)
[2016-07-30] MEDS ORDERED: CENTRUM PO ×2 (04:57→05:15)
[2016-07-30] MEDS ORDERED: JANTOVEN3 MG PO ×2 (04:58→05:16)
[2016-07-30] MEDS ORDERED: VITAMIN D31000 UNIT PO ×2 (04:58→05:15)
[2016-07-30] MEDS ORDERED: BUM1 PO ×2 (04:59→05:19)
[2016-07-30] MEDS ORDERED: PRAVACHOL40 MG PO ×2 (04:59→05:19)
[2016-07-30] MEDS ORDERED: Z100 PO ×2 (05:00→05:20)
[2016-07-30] MEDS ORDERED: IRON PO ×2 (05:00→05:21)
[2016-07-30] MEDS ORDERED: LEVEMFLXPN SC ×2 (05:03→05:23)
[2016-07-30] MEDS ORDERED: ZYRTEC ALLGY10 MG PO (05:12)
[2016-07-30] MEDS ORDERED: COZAAR100 MG PO (05:14)
[2016-07-30] MEDS ORDERED: HYCET 7.5 MG-3473 ML PO (05:18)
[2016-07-30] MEDS ORDERED: [UNRECOGNIZED DRUG - OTHER] (05:22)
[2016-07-30] MEDS ORDERED: CLOTRIMAZOLE CREAM (05:23)
[2016-07-30] MEDS ORDERED: NOVOPEN SC (05:24)
[2016-07-30 09:07] LABS: BASOPHILS 0.2 %; BASOPHILS ABSOLUTE 0.02 10/3/uL (0.0-0.16); EOSINOPHILS 0.1 %; EOSINOPHILS ABSOLUTE 0.01 10/3/uL (0.0-0.53); HEMATOCRIT 35.2 % (40.0-51.0); HEMOGLOBIN 11.6 g/dL (13.6-17.8); IMMATURE GRANULOCYTES 0.2 %; IMMATURE GRANULOCYTES ABSOLUTE 0.02 10/3/uL (0.0-0.11); LYMPHOCYTES 7.1 %; LYMPHOCYTES ABSOLUTE 0.91 10/3/uL (0.67-4.30); MEAN CORPUSCULAR HEMOGLOB 32.5 pg (26.0-34.0); MEAN CORPUSCULAR VOLUME 98.6 fL (80-100); MONOCYTES 7.2 %; MONOCYTES ABSOLUTE 0.92 10/3/uL (0.21-1.20); NEUTROPHILS 85.2 %; NEUTROPHILS ABSOLUTE 10.95 10/3/uL (2.02-8.40); PLATELET COUNT 123 10/3/uL (150-400); RBC DISTRIBUTION WIDTH 15.3 % (12.0-16.0); RED CELL COUNT 3.57 10/6/uL (4.7-6.1); WHITE BLOOD CELLS 12.8 10/3/uL (4.5-10.5)
[2016-07-30 09:08] LABS: MANUAL DIFF NO %
[2016-07-30 09:14] LABS: INTERNATIONAL NORMAL RATI 1.6 UNITS (-); PARTIAL THROMBO TIME 36.6 SEC (22.5-37.2)
[2016-07-30 09:30] LABS: BUN (BLOOD UREA NITROGEN) 55 MG/DL (6-23); CALCIUM, SERUM 8.9 MG/DL (8.5-10.4); CHLORIDE, SERUM 104 MMOL/L (96-112); CO2 (CARBON DIOXIDE) 26 MMOL/L (24-34); CREATININE 2.85 MG/DL (0.70-1.30); GFR AFRICAN AMERICAN 25 ML/MIN (>=60); GFR NON AFRICAN AMERICAN 22 ML/MIN (>=60); GLUCOSE, SERUM 255 MG/DL (60-99); POTASSIUM, SERUM 3.9 MMOL/L (3.5-5.3); SGOT(AST) 94 U/L (5-40); SGPT(ALT) 76 U/L (5-65); SODIUM, SERUM 140 MMOL/L (135-148); TOTAL PROTEIN 6.7 G/DL (6.0-8.5)
[2016-07-30 09:31] LABS: A/G RATIO 0.7 (0.7-1.9); ALBUMIN 2.8 G/DL (3.5-5.0); ALKALINE PHOSPHATASE 122 U/L (45-117); CK-MB 1.5 NG/ML; CPK 139 U/L (0-200); GLOBULIN 3.9 G/DL (2.5-4.1); TOTAL BILIRUBIN 7.7 MG/DL (0-1.2); TROPONIN I 0.05 NG/ML (<0.05)
[2016-07-30 09:42] LABS: B NATRIURETIC PEPTIDE (BNP) 431.1 PG/ML (< 100.0)
[2016-07-30 10:42] LABS: PROCALCITONIN 1.22 ng/mL (<0.5)
[2016-07-30 13:15] LABS: GLYCOHEMOGLOBIN (HbA1c) 8.3 % (4.7-6.1)
[2016-07-31 05:06] LABS: BASOPHILS 0 %; EOSINOPHILS 0 %; HEMATOCRIT 35.9 % (40.0-51.0); HEMOGLOBIN 11.8 g/dL (13.6-17.8); IMMATURE GRANULOCYTES 0.2 %; IMMATURE GRANULOCYTES ABSOLUTE 0.02 10/3/uL (0.0-0.11); LYMPHOCYTES ABSOLUTE 0.58 10/3/uL (0.67-4.30); MEAN CORPUS HGB CONC 32.9 g/dL (32.0-36.0); MEAN CORPUSCULAR HEMOGLOB 32.1 pg (26.0-34.0); MEAN CORPUSCULAR VOLUME 97.6 fL (80-100); MEAN PLATELET VOLUME 11.6 fL (9.2-13.0); MONOCYTES 3.2 %; MONOCYTES ABSOLUTE 0.37 10/3/uL (0.21-1.20); NEUTROPHILS 91.6 %; NEUTROPHILS ABSOLUTE 10.64 10/3/uL (2.02-8.40); PLATELET COUNT 114 10/3/uL (150-400); RBC DISTRIBUTION WIDTH 15.2 % (12.0-16.0); RED CELL COUNT 3.68 10/6/uL (4.7-6.1); WHITE BLOOD CELLS 11.6 10/3/uL (4.5-10.5)
[2016-07-31 05:07] LABS: MANUAL DIFF NO %
[2016-07-31 05:15] LABS: INTERNATIONAL NORMAL RATI 1.6 UNITS (-); PROTIME (NOT ORD) 18.9 SEC (12.0-14.5)
[2016-07-31 05:17] LABS: CALCIUM, SERUM 9.3 MG/DL (8.5-10.4); CHLORIDE, SERUM 102 MMOL/L (96-112); CO2 (CARBON DIOXIDE) 24 MMOL/L (24-34); CREATININE 3.01 MG/DL (0.70-1.30); GFR AFRICAN AMERICAN 24 ML/MIN (>=60); GFR NON AFRICAN AMERICAN 20 ML/MIN (>=60); SODIUM, SERUM 134 MMOL/L (135-148)
[2016-07-31 05:21] LABS: BUN (BLOOD UREA NITROGEN) 64 MG/DL (6-23); GLUCOSE, SERUM 312 MG/DL (60-99)
[2016-08-01 04:44] LABS: INTERNATIONAL NORMAL RATI 1.6 UNITS (-)
[2016-08-02 05:37] LABS: BASOPHILS 0.1 %; BASOPHILS ABSOLUTE 0.01 10/3/uL (0.0-0.16); EOSINOPHILS 0.1 %; EOSINOPHILS ABSOLUTE 0.01 10/3/uL (0.0-0.53); HEMATOCRIT 37.1 % (40.0-51.0); HEMOGLOBIN 12.2 g/dL (13.6-17.8); IMMATURE GRANULOCYTES 0.2 %; IMMATURE GRANULOCYTES ABSOLUTE 0.02 10/3/uL (0.0-0.11); LYMPHOCYTES 12.3 %; LYMPHOCYTES ABSOLUTE 1.01 10/3/uL (0.67-4.30); MEAN CORPUS HGB CONC 32.9 g/dL (32.0-36.0); MEAN CORPUSCULAR HEMOGLOB 32.9 pg (26.0-34.0); MEAN PLATELET VOLUME 12.2 fL (9.2-13.0); MONOCYTES 5.1 %; MONOCYTES ABSOLUTE 0.42 10/3/uL (0.21-1.20); NEUTROPHILS 82.2 %; NEUTROPHILS ABSOLUTE 6.76 10/3/uL (2.02-8.40); PLATELET COUNT 142 10/3/uL (150-400); RBC DISTRIBUTION WIDTH 15.4 % (12.0-16.0); RED CELL COUNT 3.71 10/6/uL (4.7-6.1); WHITE BLOOD CELLS 8.2 10/3/uL (4.5-10.5)
[2016-08-02 05:39] LABS: MANUAL DIFF NO %
[2016-08-02 05:41] LABS: INTERNATIONAL NORMAL RATI 1.7 UNITS (-); PROTIME (NOT ORD) 20.1 SEC (12.0-14.5)
[2016-08-02 05:52] LABS: CALCIUM, SERUM 9.7 MG/DL (8.5-10.4); CHLORIDE, SERUM 103 MMOL/L (96-112); CO2 (CARBON DIOXIDE) 23 MMOL/L (24-34); CREATININE 2.58 MG/DL (0.70-1.30); GFR AFRICAN AMERICAN 28 ML/MIN (>=60); GFR NON AFRICAN AMERICAN 24 ML/MIN (>=60); POTASSIUM, SERUM 4.2 MMOL/L (3.5-5.3); SODIUM, SERUM 136 MMOL/L (135-148); TRIGLYCERIDE 179 MG/DL (< 150)
[2016-08-02 05:54] LABS: BUN (BLOOD UREA NITROGEN) 99 MG/DL (6-23); CHOL/HDL RATIO(NOT ORDER) 7.3 (0-5); CHOLESTEROL 153 MG/DL (< 200); GLUCOSE, SERUM 169 MG/DL (60-99); HDL CHOLESTEROL 21 MG/DL (> 39); LDL CHOLESTEROL 97 MG/DL (< 130); NON-HDL CHOLESTEROL 132 MG/DL (< 160)
[2016-08-02 20:33] LABS: ASCORBIC ACID (UR NOT ORDER) NEG (NEG); BILIRUBIN, URINE NEGATIVE (NEG); KETONE, URINE NEGATIVE (NEG); LEUKOCYTE ESTERASE(NOT OR NEG (NEG); WBC (NOT ORDERED) (RFLEX) 1 (0-5)
[2016-08-03 08:15] LABS: BASOPHILS 0.2 %; BASOPHILS ABSOLUTE 0.01 10/3/uL (0.0-0.16); EOSINOPHILS 1.9 %; HEMATOCRIT 38.1 % (40.0-51.0); HEMOGLOBIN 12.3 g/dL (13.6-17.8); IMMATURE GRANULOCYTES 0.2 %; IMMATURE GRANULOCYTES ABSOLUTE 0.01 10/3/uL (0.0-0.11); MEAN CORPUS HGB CONC 32.3 g/dL (32.0-36.0); MEAN CORPUSCULAR HEMOGLOB 32.4 pg (26.0-34.0); MEAN CORPUSCULAR VOLUME 100.3 fL (80-100); MEAN PLATELET VOLUME 11.9 fL (9.2-13.0); MONOCYTES 7.8 %; MONOCYTES ABSOLUTE 0.41 10/3/uL (0.21-1.20); NEUTROPHILS 72.9 %; NEUTROPHILS ABSOLUTE 3.86 10/3/uL (2.02-8.40); PLATELET COUNT 132 10/3/uL (150-400); RBC DISTRIBUTION WIDTH 15.6 % (12.0-16.0); WHITE BLOOD CELLS 5.3 10/3/uL (4.5-10.5)
[2016-08-03 08:16] LABS: MANUAL DIFF NO %
[2016-08-03 08:28] LABS: ALBUMIN 2.6 G/DL (3.5-5.0); CHLORIDE, SERUM 109 MMOL/L (96-112); CO2 (CARBON DIOXIDE) 24 MMOL/L (24-34); CREATININE 2.34 MG/DL (0.70-1.30); GFR AFRICAN AMERICAN 32 ML/MIN (>=60); GFR NON AFRICAN AMERICAN 28 ML/MIN (>=60); POTASSIUM, SERUM 4.4 MMOL/L (3.5-5.3)
[2016-08-03 08:29] LABS: BUN (BLOOD UREA NITROGEN) 91 MG/DL (6-23); GLUCOSE, SERUM 115 MG/DL (60-99); PHOSPHORUS, SERUM 3.5 MG/DL (2.5-4.5); SODIUM, SERUM 143 MMOL/L (135-148)
[2016-08-03 11:41] LABS: ASCORBIC ACID (UR NOT ORDER) NEG (NEG); BILIRUBIN, URINE NEGATIVE (NEG); KETONE, URINE NEGATIVE (NEG); LEUKOCYTE ESTERASE(NOT OR NEG (NEG); WBC (NOT ORDERED) (RFLEX) 1 (0-5)
[2016-08-04 04:33] LABS: BASOPHILS 0.2 %; BASOPHILS ABSOLUTE 0.01 10/3/uL (0.0-0.16); EOSINOPHILS 2.2 %; EOSINOPHILS ABSOLUTE 0.13 10/3/uL (0.0-0.53); HEMATOCRIT 37.1 % (40.0-51.0); IMMATURE GRANULOCYTES 0.7 %; IMMATURE GRANULOCYTES ABSOLUTE 0.04 10/3/uL (0.0-0.11); LYMPHOCYTES ABSOLUTE 0.99 10/3/uL (0.67-4.30); MEAN CORPUS HGB CONC 32.3 g/dL (32.0-36.0); MEAN CORPUSCULAR VOLUME 98.9 fL (80-100); MONOCYTES 6.8 %; NEUTROPHILS 73.1 %; NEUTROPHILS ABSOLUTE 4.27 10/3/uL (2.02-8.40); PLATELET COUNT 145 10/3/uL (150-400); RBC DISTRIBUTION WIDTH 15.4 % (12.0-16.0); RED CELL COUNT 3.75 10/6/uL (4.7-6.1); WHITE BLOOD CELLS 5.8 10/3/uL (4.5-10.5)
[2016-08-04 04:34] LABS: MANUAL DIFF NO %
[2016-08-04 04:43] LABS: INTERNATIONAL NORMAL RATI 1.7 UNITS (-); PROTIME (NOT ORD) 19.5 SEC (12.0-14.5)
[2016-08-04 04:45] LABS: PARTIAL THROMBO TIME 104.5 SEC (22.5-37.2)
[2016-08-04 04:54] LABS: % IRON SAT 40 % (20-50); A/G RATIO 0.7 (0.7-1.9); ALBUMIN 2.6 G/DL (3.5-5.0); BUN (BLOOD UREA NITROGEN) 93 MG/DL (6-23); CHLORIDE, SERUM 106 MMOL/L (96-112); CO2 (CARBON DIOXIDE) 24 MMOL/L (24-34); CREATININE 2.55 MG/DL (0.70-1.30); GFR AFRICAN AMERICAN 29 ML/MIN (>=60); GFR NON AFRICAN AMERICAN 25 ML/MIN (>=60); GLOBULIN 3.9 G/DL (2.5-4.1); GLUCOSE, SERUM 105 MG/DL (60-99); IRON BINDING CAPACITY 214 MCG/DL (250-450); IRON, SERUM 85 MCG/DL (35-150); PHOSPHORUS, SERUM 3.5 MG/DL (2.5-4.5); POTASSIUM, SERUM 4.2 MMOL/L (3.5-5.3); SGOT(AST) 48 U/L (5-40); SGPT(ALT) 49 U/L (5-65); SODIUM, SERUM 138 MMOL/L (135-148); TOTAL PROTEIN 6.5 G/DL (6.0-8.5)
[2016-08-04 04:56] LABS: ALKALINE PHOSPHATASE 97 U/L (45-117); TOTAL BILIRUBIN 2.1 MG/DL (0-1.2)
[2016-08-04 18:07] LABS: BE (BASE EXCESS) -3.2 MEQ/L (0 +/- 2.5); CARBOXYHEMOGLOBIN 0.6 % (0-3); HCO3 (ACTUAL BICARBONATE) 22.7 MEQ/L (23-27); HEMOBLOGIN CONTENT 12.3 G/DL (14-18); INSTRUMENT SERIAL # 11843; METHEMOGLOBIN 0.4 % (0-3); MODE SIMV; O2 CONTENT 17.5 VOL% (18-24); OPERATOR ID 35188; PCO2 (CO2 TENSION) 44 MMHG (35-45); PO2 (O2 TENSION) 271 MMHG (79-93); SAMPLE Arterial; pH 7.33 (7.37-7.43)
[2016-08-04 18:21] LABS: BASOPHILS 0 %; EOSINOPHILS 0.2 %; EOSINOPHILS ABSOLUTE 0.03 10/3/uL (0.0-0.53); HEMATOCRIT 35.2 % (40.0-51.0); HEMOGLOBIN 11.4 g/dL (13.6-17.8); IMMATURE GRANULOCYTES 0.6 %; IMMATURE GRANULOCYTES ABSOLUTE 0.09 10/3/uL (0.0-0.11); LYMPHOCYTES 4.3 %; LYMPHOCYTES ABSOLUTE 0.63 10/3/uL (0.67-4.30); MANUAL DIFF NO %; MEAN CORPUS HGB CONC 32.4 g/dL (32.0-36.0); MEAN CORPUSCULAR HEMOGLOB 32.2 pg (26.0-34.0); MEAN CORPUSCULAR VOLUME 99.4 fL (80-100); MEAN PLATELET VOLUME 11.5 fL (9.2-13.0); MONOCYTES 5.3 %; MONOCYTES ABSOLUTE 0.77 10/3/uL (0.21-1.20); NEUTROPHILS 89.6 %; NEUTROPHILS ABSOLUTE 13.07 10/3/uL (2.02-8.40); PLATELET COUNT 160 10/3/uL (150-400); RBC DISTRIBUTION WIDTH 15.5 % (12.0-16.0); RED CELL COUNT 3.54 10/6/uL (4.7-6.1); WHITE BLOOD CELLS 14.6 10/3/uL (4.5-10.5)
[2016-08-04 18:27] LABS: INTERNATIONAL NORMAL RATI 1.5 UNITS (-); PARTIAL THROMBO TIME 28.6 SEC (22.5-37.2); PROTIME (NOT ORD) 18.3 SEC (12.0-14.5)
[2016-08-04 18:38] LABS: CALCIUM, SERUM 8.5 MG/DL (8.5-10.4); CHLORIDE, SERUM 110 MMOL/L (96-112); CO2 (CARBON DIOXIDE) 24 MMOL/L (24-34); CREATININE 2.61 MG/DL (0.70-1.30); GFR AFRICAN AMERICAN 28 ML/MIN (>=60); GFR NON AFRICAN AMERICAN 24 ML/MIN (>=60); GLUCOSE, SERUM 113 MG/DL (60-99); SODIUM, SERUM 142 MMOL/L (135-148)
[2016-08-04 18:40] LABS: BUN (BLOOD UREA NITROGEN) 82 MG/DL (6-23); POTASSIUM, SERUM 5.1 MMOL/L (3.5-5.3)
[2016-08-04 19:28] LABS: FIBRINOGEN 290 MG/DL (230-462)
[2016-08-04 23:12] LABS: BE (BASE EXCESS) -4.6 MEQ/L (0 +/- 2.5); DEVICE NC; HCO3 (ACTUAL BICARBONATE) 21.6 MEQ/L (23-27); HEMOBLOGIN CONTENT 11.8 G/DL (14-18); INSTRUMENT SERIAL # 11843; METHEMOGLOBIN 0.2 % (0-3); O2 CONTENT 16.2 VOL% (18-24); OPERATOR ID 13415; PCO2 (CO2 TENSION) 44 MMHG (35-45); PO2 (O2 TENSION) 133 MMHG (79-93); SAMPLE Arterial; pH 7.31 (7.37-7.43)
[2016-08-04 23:49] LABS: HEMATOCRIT 33.2 % (40.0-51.0); HEMOGLOBIN 11.2 g/dL (13.6-17.8)
[2016-08-04 23:56] LABS: POTASSIUM, SERUM 5.4 MMOL/L (3.5-5.3)
[2016-08-05 04:20] LABS: BASOPHILS 0.1 %; BASOPHILS ABSOLUTE 0.01 10/3/uL (0.0-0.16); EOSINOPHILS 0 %; HEMATOCRIT 32.7 % (40.0-51.0); HEMOGLOBIN 10.6 g/dL (13.6-17.8); IMMATURE GRANULOCYTES 0.4 %; IMMATURE GRANULOCYTES ABSOLUTE 0.08 10/3/uL (0.0-0.11); LYMPHOCYTES 3.2 %; LYMPHOCYTES ABSOLUTE 0.62 10/3/uL (0.67-4.30); MEAN CORPUS HGB CONC 32.4 g/dL (32.0-36.0); MEAN CORPUSCULAR HEMOGLOB 32.2 pg (26.0-34.0); MEAN CORPUSCULAR VOLUME 99.4 fL (80-100); MEAN PLATELET VOLUME 11.9 fL (9.2-13.0); MONOCYTES 2.9 %; MONOCYTES ABSOLUTE 0.56 10/3/uL (0.21-1.20); NEUTROPHILS 93.4 %; NEUTROPHILS ABSOLUTE 17.86 10/3/uL (2.02-8.40); PLATELET COUNT 140 10/3/uL (150-400); RBC DISTRIBUTION WIDTH 15.9 % (12.0-16.0); RED CELL COUNT 3.29 10/6/uL (4.7-6.1); WHITE BLOOD CELLS 19.1 10/3/uL (4.5-10.5)
[2016-08-05 04:22] LABS: MANUAL DIFF NO %
[2016-08-05 04:32] LABS: ALBUMIN 2.9 G/DL (3.5-5.0); CALCIUM, SERUM 8.7 MG/DL (8.5-10.4); CHLORIDE, SERUM 111 MMOL/L (96-112); CO2 (CARBON DIOXIDE) 21 MMOL/L (24-34); GFR AFRICAN AMERICAN 27 ML/MIN (>=60); GFR NON AFRICAN AMERICAN 23 ML/MIN (>=60); GLUCOSE, SERUM 104 MG/DL (60-99); POTASSIUM, SERUM 4.9 MMOL/L (3.5-5.3); SODIUM, SERUM 141 MMOL/L (135-148)
[2016-08-05 04:34] LABS: BUN (BLOOD UREA NITROGEN) 90 MG/DL (6-23); PHOSPHORUS, SERUM 4.8 MG/DL (2.5-4.5)
[2016-08-05 15:29] LABS: HEMATOCRIT 30.9 % (40.0-51.0); HEMOGLOBIN 10.1 g/dL (13.6-17.8)
[2016-08-05 15:34] LABS: POTASSIUM, SERUM 4.6 MMOL/L (3.5-5.3)
[2016-08-06 03:10] LABS: BASOPHILS 0.1 %; BASOPHILS ABSOLUTE 0.01 10/3/uL (0.0-0.16); EOSINOPHILS 0 %; HEMATOCRIT 30.4 % (40.0-51.0); HEMOGLOBIN 10.1 g/dL (13.6-17.8); IMMATURE GRANULOCYTES 0.6 %; IMMATURE GRANULOCYTES ABSOLUTE 0.11 10/3/uL (0.0-0.11); LYMPHOCYTES ABSOLUTE 0.57 10/3/uL (0.67-4.30); MEAN CORPUS HGB CONC 33.2 g/dL (32.0-36.0); MEAN CORPUSCULAR HEMOGLOB 33.1 pg (26.0-34.0); MEAN CORPUSCULAR VOLUME 99.7 fL (80-100); MEAN PLATELET VOLUME 12.1 fL (9.2-13.0); MONOCYTES 6.4 %; MONOCYTES ABSOLUTE 1.21 10/3/uL (0.21-1.20); NEUTROPHILS 89.9 %; NEUTROPHILS ABSOLUTE 17.08 10/3/uL (2.02-8.40); PLATELET COUNT 161 10/3/uL (150-400); RBC DISTRIBUTION WIDTH 16.1 % (12.0-16.0); RED CELL COUNT 3.05 10/6/uL (4.7-6.1)
[2016-08-06 03:13] LABS: MANUAL DIFF NO %
[2016-08-06 03:52] LABS: ALBUMIN 3.2 G/DL (3.5-5.0); BUN (BLOOD UREA NITROGEN) 91 MG/DL (6-23); CALCIUM, SERUM 9.1 MG/DL (8.5-10.4); CHLORIDE, SERUM 105 MMOL/L (96-112); CO2 (CARBON DIOXIDE) 22 MMOL/L (24-34); CREATININE 2.97 MG/DL (0.70-1.30); GFR AFRICAN AMERICAN 24 ML/MIN (>=60); GFR NON AFRICAN AMERICAN 21 ML/MIN (>=60); GLUCOSE, SERUM 98 MG/DL (60-99); PHOSPHORUS, SERUM 6.5 MG/DL (2.5-4.5); SODIUM, SERUM 138 MMOL/L (135-148)
[2016-08-07 06:15] LABS: BASOPHILS 0 %; EOSINOPHILS 0 %; HEMATOCRIT 29.1 % (40.0-51.0); HEMOGLOBIN 9.5 g/dL (13.6-17.8); IMMATURE GRANULOCYTES 0.6 %; IMMATURE GRANULOCYTES ABSOLUTE 0.08 10/3/uL (0.0-0.11); LYMPHOCYTES 6.2 %; LYMPHOCYTES ABSOLUTE 0.88 10/3/uL (0.67-4.30); MEAN CORPUS HGB CONC 32.6 g/dL (32.0-36.0); MEAN CORPUSCULAR HEMOGLOB 32.4 pg (26.0-34.0); MEAN CORPUSCULAR VOLUME 99.3 fL (80-100); MEAN PLATELET VOLUME 11.5 fL (9.2-13.0); MONOCYTES 6.4 %; NEUTROPHILS 86.8 %; NEUTROPHILS ABSOLUTE 12.27 10/3/uL (2.02-8.40); PLATELET COUNT 118 10/3/uL (150-400); RBC DISTRIBUTION WIDTH 16.1 % (12.0-16.0); RED CELL COUNT 2.93 10/6/uL (4.7-6.1); WHITE BLOOD CELLS 14.1 10/3/uL (4.5-10.5)
[2016-08-07 06:16] LABS: MANUAL DIFF NO %
[2016-08-07 06:38] LABS: ALBUMIN 3.1 G/DL (3.5-5.0); CALCIUM, SERUM 8.8 MG/DL (8.5-10.4); CHLORIDE, SERUM 100 MMOL/L (96-112); CO2 (CARBON DIOXIDE) 20 MMOL/L (24-34); CREATININE 3.46 MG/DL (0.70-1.30); GFR AFRICAN AMERICAN 20 ML/MIN (>=60); GFR NON AFRICAN AMERICAN 17 ML/MIN (>=60); PHOSPHORUS, SERUM 6.2 MG/DL (2.5-4.5); POTASSIUM, SERUM 5.1 MMOL/L (3.5-5.3); SODIUM, SERUM 132 MMOL/L (135-148)
[2016-08-07 06:42] LABS: BUN (BLOOD UREA NITROGEN) 111 MG/DL (6-23); GLUCOSE, SERUM 180 MG/DL (60-99)
[2016-08-08 03:54] LABS: BASOPHILS 0 %; EOSINOPHILS 0.4 %; EOSINOPHILS ABSOLUTE 0.04 10/3/uL (0.0-0.53); HEMATOCRIT 27.3 % (40.0-51.0); IMMATURE GRANULOCYTES 1.1 %; IMMATURE GRANULOCYTES ABSOLUTE 0.12 10/3/uL (0.0-0.11); LYMPHOCYTES 9.9 %; LYMPHOCYTES ABSOLUTE 1.05 10/3/uL (0.67-4.30); MEAN CORPUSCULAR HEMOGLOB 32.8 pg (26.0-34.0); MEAN CORPUSCULAR VOLUME 99.6 fL (80-100); MEAN PLATELET VOLUME 11.4 fL (9.2-13.0); MONOCYTES ABSOLUTE 0.95 10/3/uL (0.21-1.20); NEUTROPHILS 79.6 %; NEUTROPHILS ABSOLUTE 8.44 10/3/uL (2.02-8.40); PLATELET COUNT 111 10/3/uL (150-400); RBC DISTRIBUTION WIDTH 15.8 % (12.0-16.0); RED CELL COUNT 2.74 10/6/uL (4.7-6.1); WHITE BLOOD CELLS 10.6 10/3/uL (4.5-10.5)
[2016-08-08 03:59] LABS: MANUAL DIFF NO %
[2016-08-08 04:10] LABS: ALBUMIN 2.8 G/DL (3.5-5.0); CALCIUM, SERUM 8.8 MG/DL (8.5-10.4); CHLORIDE, SERUM 102 MMOL/L (96-112); CO2 (CARBON DIOXIDE) 20 MMOL/L (24-34); CREATININE 3.59 MG/DL (0.70-1.30); GFR AFRICAN AMERICAN 19 ML/MIN (>=60); GFR NON AFRICAN AMERICAN 16 ML/MIN (>=60); GLUCOSE, SERUM 152 MG/DL (60-99); PHOSPHORUS, SERUM 5.8 MG/DL (2.5-4.5); POTASSIUM, SERUM 4.8 MMOL/L (3.5-5.3); SODIUM, SERUM 133 MMOL/L (135-148)
[2016-08-08 04:11] LABS: BUN (BLOOD UREA NITROGEN) 117 MG/DL (6-23)
[2016-08-08 14:37] LABS: ALBUMIN 2.8 G/DL (3.5-5.0); CALCIUM, SERUM 8.6 MG/DL (8.5-10.4); CHLORIDE, SERUM 99 MMOL/L (96-112); CO2 (CARBON DIOXIDE) 19 MMOL/L (24-34); CREATININE 3.61 MG/DL (0.70-1.30); GFR AFRICAN AMERICAN 19 ML/MIN (>=60); GFR NON AFRICAN AMERICAN 16 ML/MIN (>=60); PHOSPHORUS, SERUM 5.8 MG/DL (2.5-4.5); POTASSIUM, SERUM 4.8 MMOL/L (3.5-5.3); SODIUM, SERUM 129 MMOL/L (135-148)
[2016-08-08 14:38] LABS: BUN (BLOOD UREA NITROGEN) 124 MG/DL (6-23); GLUCOSE, SERUM 225 MG/DL (60-99)
[2016-08-09 04:10] LABS: BASOPHILS 0.1 %; BASOPHILS ABSOLUTE 0.01 10/3/uL (0.0-0.16); EOSINOPHILS 1.4 %; EOSINOPHILS ABSOLUTE 0.14 10/3/uL (0.0-0.53); HEMATOCRIT 26.8 % (40.0-51.0); HEMOGLOBIN 8.9 g/dL (13.6-17.8); IMMATURE GRANULOCYTES 0.9 %; IMMATURE GRANULOCYTES ABSOLUTE 0.09 10/3/uL (0.0-0.11); LYMPHOCYTES 8.5 %; LYMPHOCYTES ABSOLUTE 0.88 10/3/uL (0.67-4.30); MANUAL DIFF NO %; MEAN CORPUS HGB CONC 33.2 g/dL (32.0-36.0); MEAN CORPUSCULAR HEMOGLOB 32.8 pg (26.0-34.0); MEAN CORPUSCULAR VOLUME 98.9 fL (80-100); MEAN PLATELET VOLUME 11.6 fL (9.2-13.0); MONOCYTES 7.6 %; MONOCYTES ABSOLUTE 0.79 10/3/uL (0.21-1.20); NEUTROPHILS 81.5 %; NEUTROPHILS ABSOLUTE 8.43 10/3/uL (2.02-8.40); PLATELET COUNT 133 10/3/uL (150-400); RBC DISTRIBUTION WIDTH 15.6 % (12.0-16.0); RED CELL COUNT 2.71 10/6/uL (4.7-6.1); WHITE BLOOD CELLS 10.3 10/3/uL (4.5-10.5)
[2016-08-09 04:29] LABS: ALBUMIN 2.8 G/DL (3.5-5.0); CALCIUM, SERUM 8.8 MG/DL (8.5-10.4); CHLORIDE, SERUM 103 MMOL/L (96-112); CO2 (CARBON DIOXIDE) 20 MMOL/L (24-34); CREATININE 3.39 MG/DL (0.70-1.30); GFR AFRICAN AMERICAN 20 ML/MIN (>=60); GFR NON AFRICAN AMERICAN 18 ML/MIN (>=60); PHOSPHORUS, SERUM 5.3 MG/DL (2.5-4.5); POTASSIUM, SERUM 4.8 MMOL/L (3.5-5.3); SODIUM, SERUM 133 MMOL/L (135-148)
[2016-08-09 04:30] LABS: BUN (BLOOD UREA NITROGEN) 124 MG/DL (6-23); GLUCOSE, SERUM 151 MG/DL (60-99)
[2016-08-09 15:39] LABS: INTERNATIONAL NORMAL RATI 1.6 UNITS (-); PROTIME (NOT ORD) 19.3 SEC (12.0-14.5)
[2016-08-10 04:39] LABS: BASOPHILS 0.1 %; BASOPHILS ABSOLUTE 0.01 10/3/uL (0.0-0.16); EOSINOPHILS 1.8 %; EOSINOPHILS ABSOLUTE 0.15 10/3/uL (0.0-0.53); HEMATOCRIT 26.2 % (40.0-51.0); HEMOGLOBIN 8.7 g/dL (13.6-17.8); IMMATURE GRANULOCYTES 1.1 %; IMMATURE GRANULOCYTES ABSOLUTE 0.09 10/3/uL (0.0-0.11); LYMPHOCYTES 8.2 %; LYMPHOCYTES ABSOLUTE 0.69 10/3/uL (0.67-4.30); MEAN CORPUS HGB CONC 33.2 g/dL (32.0-36.0); MEAN CORPUSCULAR HEMOGLOB 33.1 pg (26.0-34.0); MEAN CORPUSCULAR VOLUME 99.6 fL (80-100); MEAN PLATELET VOLUME 11.2 fL (9.2-13.0); MONOCYTES 7.8 %; MONOCYTES ABSOLUTE 0.66 10/3/uL (0.21-1.20); NEUTROPHILS ABSOLUTE 6.84 10/3/uL (2.02-8.40); PLATELET COUNT 126 10/3/uL (150-400); RBC DISTRIBUTION WIDTH 15.7 % (12.0-16.0); RED CELL COUNT 2.63 10/6/uL (4.7-6.1); WHITE BLOOD CELLS 8.4 10/3/uL (4.5-10.5)
[2016-08-10 04:43] LABS: MANUAL DIFF NO %
[2016-08-10 08:06] LABS: ALBUMIN 2.9 G/DL (3.5-5.0); CALCIUM, SERUM 9.1 MG/DL (8.5-10.4); CHLORIDE, SERUM 103 MMOL/L (96-112); CO2 (CARBON DIOXIDE) 17 MMOL/L (24-34); CREATININE 2.92 MG/DL (0.70-1.30); GFR AFRICAN AMERICAN 24 ML/MIN (>=60); GFR NON AFRICAN AMERICAN 21 ML/MIN (>=60); GLUCOSE, SERUM 123 MG/DL (60-99); PHOSPHORUS, SERUM 4.7 MG/DL (2.5-4.5); POTASSIUM, SERUM 4.6 MMOL/L (3.5-5.3); SODIUM, SERUM 133 MMOL/L (135-148)
[2016-08-10 08:07] LABS: BUN (BLOOD UREA NITROGEN) 119 MG/DL (6-23)
[2016-08-10 09:07] LABS: INTERNATIONAL NORMAL RATI 1.7 UNITS (-); PROTIME (NOT ORD) 19.4 SEC (12.0-14.5)
[2016-08-10 13:39] LABS: BE (BASE EXCESS) -6.2 MEQ/L (0 +/- 2.5); HCO3 (ACTUAL BICARBONATE) 17.9 MEQ/L (23-27); HEMOBLOGIN CONTENT 9.1 G/DL (14-18); INSTRUMENT SERIAL # 8083; O2 CONTENT 12.3 VOL% (18-24); PCO2 (CO2 TENSION) 30 MMHG (35-45); PO2 (O2 TENSION) 87 MMHG (79-93); pH 7.39 (7.37-7.43)
[2016-08-10 13:40] LABS: ALLENS TEST Pos; DEVICE NC; SAMPLE Arterial
[2016-08-11 07:07] LABS: BASOPHILS 0.1 %; BASOPHILS ABSOLUTE 0.01 10/3/uL (0.0-0.16); EOSINOPHILS ABSOLUTE 0.23 10/3/uL (0.0-0.53); HEMATOCRIT 26.2 % (40.0-51.0); HEMOGLOBIN 8.6 g/dL (13.6-17.8); IMMATURE GRANULOCYTES 1.2 %; IMMATURE GRANULOCYTES ABSOLUTE 0.14 10/3/uL (0.0-0.11); LYMPHOCYTES 6.2 %; LYMPHOCYTES ABSOLUTE 0.73 10/3/uL (0.67-4.30); MEAN CORPUS HGB CONC 32.8 g/dL (32.0-36.0); MEAN CORPUSCULAR HEMOGLOB 32.8 pg (26.0-34.0); MEAN PLATELET VOLUME 11.4 fL (9.2-13.0); MONOCYTES 6.3 %; MONOCYTES ABSOLUTE 0.74 10/3/uL (0.21-1.20); NEUTROPHILS 84.2 %; NEUTROPHILS ABSOLUTE 9.85 10/3/uL (2.02-8.40); PLATELET COUNT 146 10/3/uL (150-400); RBC DISTRIBUTION WIDTH 16.1 % (12.0-16.0); RED CELL COUNT 2.62 10/6/uL (4.7-6.1); WHITE BLOOD CELLS 11.7 10/3/uL (4.5-10.5)
[2016-08-11 07:08] LABS: MANUAL DIFF NO %
[2016-08-11 07:11] LABS: INTERNATIONAL NORMAL RATI 1.7 UNITS (-); PROTIME (NOT ORD) 19.8 SEC (12.0-14.5)
[2016-08-11 07:18] LABS: ALKALINE PHOSPHATASE 69 U/L (45-117); BUN (BLOOD UREA NITROGEN) 113 MG/DL (6-23); CALCIUM, SERUM 9.3 MG/DL (8.5-10.4); CHLORIDE, SERUM 103 MMOL/L (96-112); CO2 (CARBON DIOXIDE) 21 MMOL/L (24-34); CREATININE 2.75 MG/DL (0.70-1.30); GFR AFRICAN AMERICAN 26 ML/MIN (>=60); GFR NON AFRICAN AMERICAN 23 ML/MIN (>=60); GLOBULIN 3.1 G/DL (2.5-4.1); GLUCOSE, SERUM 114 MG/DL (60-99); PHOSPHORUS, SERUM 3.9 MG/DL (2.5-4.5); POTASSIUM, SERUM 4.5 MMOL/L (3.5-5.3); SGPT(ALT) 21 U/L (5-65); SODIUM, SERUM 134 MMOL/L (135-148); TOTAL BILIRUBIN 1.5 MG/DL (0-1.2); TOTAL PROTEIN 6.1 G/DL (6.0-8.5)
[2016-08-11 07:19] LABS: SGOT(AST) 46 U/L (5-40)
[2016-08-12 06:35] LABS: BASOPHILS 0.2 %; BASOPHILS ABSOLUTE 0.02 10/3/uL (0.0-0.16); EOSINOPHILS 3.4 %; EOSINOPHILS ABSOLUTE 0.34 10/3/uL (0.0-0.53); HEMOGLOBIN 8.3 g/dL (13.6-17.8); IMMATURE GRANULOCYTES 1.4 %; IMMATURE GRANULOCYTES ABSOLUTE 0.14 10/3/uL (0.0-0.11); LYMPHOCYTES 6.5 %; LYMPHOCYTES ABSOLUTE 0.65 10/3/uL (0.67-4.30); MEAN CORPUS HGB CONC 33.2 g/dL (32.0-36.0); MEAN CORPUSCULAR HEMOGLOB 33.1 pg (26.0-34.0); MEAN CORPUSCULAR VOLUME 99.6 fL (80-100); MONOCYTES 6.9 %; MONOCYTES ABSOLUTE 0.69 10/3/uL (0.21-1.20); NEUTROPHILS 81.6 %; NEUTROPHILS ABSOLUTE 8.09 10/3/uL (2.02-8.40); PLATELET COUNT 143 10/3/uL (150-400); RBC DISTRIBUTION WIDTH 16.2 % (12.0-16.0); RED CELL COUNT 2.51 10/6/uL (4.7-6.1); WHITE BLOOD CELLS 9.9 10/3/uL (4.5-10.5)
[2016-08-12 06:36] LABS: MANUAL DIFF NO %
[2016-08-12 06:48] LABS: INTERNATIONAL NORMAL RATI 1.9 UNITS (-); PROTIME (NOT ORD) 21.5 SEC (12.0-14.5)
[2016-08-12 06:50] LABS: A/G RATIO 0.9 (0.7-1.9); ALBUMIN 2.9 G/DL (3.5-5.0); ALKALINE PHOSPHATASE 72 U/L (45-117); BUN (BLOOD UREA NITROGEN) 99 MG/DL (6-23); CALCIUM, SERUM 9.3 MG/DL (8.5-10.4); CHLORIDE, SERUM 105 MMOL/L (96-112); CO2 (CARBON DIOXIDE) 22 MMOL/L (24-34); CREATININE 2.46 MG/DL (0.70-1.30); GFR AFRICAN AMERICAN 30 ML/MIN (>=60); GFR NON AFRICAN AMERICAN 26 ML/MIN (>=60); GLOBULIN 3.2 G/DL (2.5-4.1); GLUCOSE, SERUM 94 MG/DL (60-99); PHOSPHORUS, SERUM 3.4 MG/DL (2.5-4.5); POTASSIUM, SERUM 4.2 MMOL/L (3.5-5.3); SGOT(AST) 44 U/L (5-40); SGPT(ALT) 20 U/L (5-65); SODIUM, SERUM 137 MMOL/L (135-148); TOTAL BILIRUBIN 1.5 MG/DL (0-1.2); TOTAL PROTEIN 6.1 G/DL (6.0-8.5)
[2016-08-13 05:48] LABS: BASOPHILS 0.2 %; BASOPHILS ABSOLUTE 0.02 10/3/uL (0.0-0.16); HEMOGLOBIN 8.8 g/dL (13.6-17.8); IMMATURE GRANULOCYTES 1.2 %; IMMATURE GRANULOCYTES ABSOLUTE 0.12 10/3/uL (0.0-0.11); MEAN CORPUS HGB CONC 32.6 g/dL (32.0-36.0); MEAN CORPUSCULAR VOLUME 101.1 fL (80-100); MONOCYTES 6.6 %; MONOCYTES ABSOLUTE 0.66 10/3/uL (0.21-1.20); NEUTROPHILS ABSOLUTE 7.98 10/3/uL (2.02-8.40); PLATELET COUNT 154 10/3/uL (150-400); RBC DISTRIBUTION WIDTH 16.7 % (12.0-16.0); RED CELL COUNT 2.67 10/6/uL (4.7-6.1)
[2016-08-13 05:49] LABS: MANUAL DIFF NO %
[2016-08-13 05:51] LABS: INTERNATIONAL NORMAL RATI 2.1 UNITS (-); PROTIME (NOT ORD) 23.4 SEC (12.0-14.5)
[2016-08-13 06:01] LABS: A/G RATIO 0.9 (0.7-1.9); ALKALINE PHOSPHATASE 71 U/L (45-117); CALCIUM, SERUM 9.4 MG/DL (8.5-10.4); CHLORIDE, SERUM 107 MMOL/L (96-112); CO2 (CARBON DIOXIDE) 23 MMOL/L (24-34); CREATININE 2.41 MG/DL (0.70-1.30); GFR AFRICAN AMERICAN 31 ML/MIN (>=60); GFR NON AFRICAN AMERICAN 27 ML/MIN (>=60); GLOBULIN 3.3 G/DL (2.5-4.1); GLUCOSE, SERUM 89 MG/DL (60-99); PHOSPHORUS, SERUM 3.6 MG/DL (2.5-4.5); POTASSIUM, SERUM 4.4 MMOL/L (3.5-5.3); SGOT(AST) 47 U/L (5-40); SGPT(ALT) 22 U/L (5-65); SODIUM, SERUM 140 MMOL/L (135-148); TOTAL BILIRUBIN 1.6 MG/DL (0-1.2); TOTAL PROTEIN 6.3 G/DL (6.0-8.5)
[2016-08-13 06:03] LABS: BUN (BLOOD UREA NITROGEN) 95 MG/DL (6-23)
[2016-08-14 06:13] LABS: BASOPHILS 0.1 %; BASOPHILS ABSOLUTE 0.01 10/3/uL (0.0-0.16); EOSINOPHILS 3.8 %; EOSINOPHILS ABSOLUTE 0.36 10/3/uL (0.0-0.53); HEMOGLOBIN 8.8 g/dL (13.6-17.8); IMMATURE GRANULOCYTES ABSOLUTE 0.09 10/3/uL (0.0-0.11); LYMPHOCYTES 7.6 %; LYMPHOCYTES ABSOLUTE 0.71 10/3/uL (0.67-4.30); MEAN CORPUS HGB CONC 32.6 g/dL (32.0-36.0); MEAN CORPUSCULAR HEMOGLOB 33.2 pg (26.0-34.0); MEAN CORPUSCULAR VOLUME 101.9 fL (80-100); MEAN PLATELET VOLUME 10.3 fL (9.2-13.0); MONOCYTES 7.5 %; NEUTROPHILS ABSOLUTE 7.51 10/3/uL (2.02-8.40); PLATELET COUNT 160 10/3/uL (150-400); RBC DISTRIBUTION WIDTH 16.9 % (12.0-16.0); RED CELL COUNT 2.65 10/6/uL (4.7-6.1); WHITE BLOOD CELLS 9.4 10/3/uL (4.5-10.5)
[2016-08-14 06:18] LABS: MANUAL DIFF NO %
[2016-08-14 06:19] LABS: INTERNATIONAL NORMAL RATI 2.5 UNITS (-); PROTIME (NOT ORD) 26.8 SEC (12.0-14.5)
[2016-08-14 06:33] LABS: ALBUMIN 2.9 G/DL (3.5-5.0); BUN (BLOOD UREA NITROGEN) 83 MG/DL (6-23); CALCIUM, SERUM 9.5 MG/DL (8.5-10.4); CHLORIDE, SERUM 105 MMOL/L (96-112); CO2 (CARBON DIOXIDE) 22 MMOL/L (24-34); CREATININE 2.39 MG/DL (0.70-1.30); GFR AFRICAN AMERICAN 31 ML/MIN (>=60); GFR NON AFRICAN AMERICAN 27 ML/MIN (>=60); GLUCOSE, SERUM 70 MG/DL (60-99); PHOSPHORUS, SERUM 3.2 MG/DL (2.5-4.5); SODIUM, SERUM 138 MMOL/L (135-148)
[2016-08-15 06:13] LABS: INTERNATIONAL NORMAL RATI 2.9 UNITS (-); PROTIME (NOT ORD) 29.9 SEC (12.0-14.5)
[2016-08-15 06:19] LABS: BASOPHILS 0.2 %; BASOPHILS ABSOLUTE 0.02 10/3/uL (0.0-0.16); EOSINOPHILS 4.9 %; EOSINOPHILS ABSOLUTE 0.45 10/3/uL (0.0-0.53); HEMATOCRIT 26.9 % (40.0-51.0); HEMOGLOBIN 8.5 g/dL (13.6-17.8); IMMATURE GRANULOCYTES 0.5 %; IMMATURE GRANULOCYTES ABSOLUTE 0.05 10/3/uL (0.0-0.11); LYMPHOCYTES 10.3 %; LYMPHOCYTES ABSOLUTE 0.95 10/3/uL (0.67-4.30); MEAN CORPUS HGB CONC 31.6 g/dL (32.0-36.0); MEAN CORPUSCULAR HEMOGLOB 32.2 pg (26.0-34.0); MEAN CORPUSCULAR VOLUME 101.9 fL (80-100); MEAN PLATELET VOLUME 10.7 fL (9.2-13.0); MONOCYTES 7.2 %; MONOCYTES ABSOLUTE 0.67 10/3/uL (0.21-1.20); NEUTROPHILS 76.9 %; NEUTROPHILS ABSOLUTE 7.11 10/3/uL (2.02-8.40); PLATELET COUNT 191 10/3/uL (150-400); RBC DISTRIBUTION WIDTH 17.3 % (12.0-16.0); RED CELL COUNT 2.64 10/6/uL (4.7-6.1); WHITE BLOOD CELLS 9.3 10/3/uL (4.5-10.5)
[2016-08-15 06:20] LABS: MANUAL DIFF NO %
[2016-08-15 06:22] LABS: CALCIUM, SERUM 9.4 MG/DL (8.5-10.4); CHLORIDE, SERUM 108 MMOL/L (96-112); CO2 (CARBON DIOXIDE) 25 MMOL/L (24-34); CREATININE 2.33 MG/DL (0.70-1.30); GFR AFRICAN AMERICAN 32 ML/MIN (>=60); GFR NON AFRICAN AMERICAN 28 ML/MIN (>=60); GLUCOSE, SERUM 64 MG/DL (60-99); PHOSPHORUS, SERUM 3.4 MG/DL (2.5-4.5); SODIUM, SERUM 141 MMOL/L (135-148)
[2016-08-15 06:24] LABS: BUN (BLOOD UREA NITROGEN) 77 MG/DL (6-23); POTASSIUM, SERUM 4.4 MMOL/L (3.5-5.3)
[2016-08-15] MEDS ORDERED: ASAB PO (14:54)
[2016-08-15] MEDS ORDERED: VITC500 PO (14:54)
[2016-08-15] MEDS ORDERED: LIPITOR40 PO (14:55)
[2016-08-15] MEDS ORDERED: CORDARONE PO (14:55)
[2016-08-15] MEDS ORDERED: COREG6 (14:56)
[2016-08-15] MEDS ORDERED: NOVOLOG SC ×2 (14:58→14:59)
[2016-08-15] MEDS ORDERED: SENTAB PO (15:01)
[2016-08-15] MEDS ORDERED: LEVEMIR SC (15:04)
[2016-08-15] MEDS ORDERED: NORCO1 TA1 PO (15:05)
[2016-08-15] MEDS ORDERED: PLAVIX PO (15:06)
[2016-08-15] MEDS ORDERED: C1 PO (15:11)
[2016-09-14] MEDS ORDERED: K500 PO (21:48)
[2016-09-14] MEDS ORDERED: DEMA20 PO (21:49)
[2016-09-14] MEDS ORDERED: Z100 PO (21:49)
[2016-09-14] MEDS ORDERED: C2 PO (21:49)
[2016-09-14] MEDS ORDERED: ASAB PO (21:50)
[2016-09-14] MEDS ORDERED: ZYRTEC ALLGY10 MG PO (21:50)
[2016-09-14] MEDS ORDERED: VITC500 PO (21:50)
[2016-09-14] MEDS ORDERED: FERROUS SULF325 M1 PO (21:50)
[2016-09-14] MEDS ORDERED: VITAMIN D2000 UNIT PO (21:51)
[2016-09-14] MEDS ORDERED: SANTYL OINTMENT TOP (21:51)
[2016-09-14] MEDS ORDERED: SENTAB PO (21:51)
[2016-09-14] MEDS ORDERED: MULTIVIT/MIN PO (21:51)
[2016-09-14] MEDS ORDERED: BUM1 PO (21:52)
[2016-09-14] MEDS ORDERED: LOFIBRA200 MG PO (21:52)
[2016-09-14] MEDS ORDERED: PROTONIX PO (21:52)
[2016-09-14] MEDS ORDERED: ROCALTROL 0.0.25 MCG PO (21:52)
[2016-09-14] MEDS ORDERED: CORDARONE PO (21:53)
[2016-09-14] MEDS ORDERED: SINGULAIR1 PO (21:53)
[2016-09-14] MEDS ORDERED: COREG6 PO (21:54)
[2016-09-14] MEDS ORDERED: PLAVIX PO (21:54)
[2016-09-14] MEDS ORDERED: LIPITOR40 PO (21:54)
[2016-09-14] MEDS ORDERED: NORCO1 TA1 PO (21:55)
[2016-09-14] MEDS ORDERED: NOVOLOG SC (21:56)
[2016-09-14] MEDS ORDERED: LEVEMFLXPN SC (21:56)
== END 2016-08-15 16:53 | disposition home or self-care (01) | DRG 229 ==
LOC: ER 03:58 → 5NO 04:35 → SDC/OF 08-04 08:36 → CVICU 08-04 15:02 → 5NO 08-09 13:20
PROVIDERS: Hospitalist; Internal Medicine; Internal Medicine Cardiovascular Disease; Internal Medicine Nephrology; Nurse Practitioner Family; Registered Nurse; Thoracic Surgery (Cardiothoracic Vascular Surgery)
PROC: 0PH000Z Insertion of Rigid Plate Internal Fixation Device into Sternum, Open Approach (ICD-10-PCS; 2016-08-04)
PROC: B246ZZ4 Ultrasonography of Right and Left Heart, Transesophageal (ICD-10-PCS; 2016-08-04)
PROC: 5A1221Z Performance of Cardiac Output, Continuous (ICD-10-PCS; 2016-08-04)
PROC: 02L70CK Occlusion of Left Atrial Appendage with Extraluminal Device, Open Approach (ICD-10-PCS; 2016-08-04)
PROC: 4A023N7 Measurement of Cardiac Sampling and Pressure, Left Heart, Percutaneous Approach (ICD-10-PCS; 2016-08-04)
PROC: B2111ZZ Fluoroscopy of Multiple Coronary Arteries using Low Osmolar Contrast (ICD-10-PCS; 2016-08-04)
PROC: B2151ZZ Fluoroscopy of Left Heart using Low Osmolar Contrast (ICD-10-PCS; 2016-08-04)
PROC: 30283B1 Transfusion of Nonautologous 4-Factor Prothrombin Complex Concentrate into Vein, Percutaneous Approach (ICD-10-PCS; 2016-08-04)
PROC: 021209W Bypass Coronary Artery, Three Arteries from Aorta with Autologous Venous Tissue, Open Approach (ICD-10-PCS; principal; 2016-08-04 11:00)
PROC: 02580ZZ Destruction of Conduction Mechanism, Open Approach (ICD-10-PCS; 2016-08-04 11:00)
PROC: 0210099 Bypass Coronary Artery, One Artery from Left Internal Mammary with Autologous Venous Tissue, Open Approach (ICD-10-PCS; 2016-08-04 11:00)
DX: I25.110 Atherosclerotic heart disease of native coronary artery with unstable angina pectoris (principal); N17.9 Acute kidney failure, unspecified; Z68.41 Body mass index [BMI] 40.0-44.9, adult; E11.22 Type 2 diabetes mellitus with diabetic chronic kidney disease; N18.4 Chronic kidney disease, stage 4 (severe); I48.2 Chronic atrial fibrillation; E11.65 Type 2 diabetes mellitus with hyperglycemia; J44.1 Chronic obstructive pulmonary disease with (acute) exacerbation; I97.89 Other postprocedural complications and disorders of the circulatory system, not elsewhere classified; E87.1 Hypo-osmolality and hyponatremia; I12.9 Hypertensive chronic kidney disease with stage 1 through stage 4 chronic kidney disease, or unspecified chronic kidney disease; Z90.5 Acquired absence of kidney; I45.10 Unspecified right bundle-branch block; E66.01 Morbid (severe) obesity due to excess calories; E78.5 Hyperlipidemia, unspecified; G47.33 Obstructive sleep apnea (adult) (pediatric); Z85.528 Personal history of other malignant neoplasm of kidney; Z86.718 Personal history of other venous thrombosis and embolism; Z98.890 Other specified postprocedural states; Z87.891 Personal history of nicotine dependence; Z83.3 Family history of diabetes mellitus; Z84.1 Family history of disorders of kidney and ureter; Z79.899 Other long term (current) drug therapy; Z79.84 Long term (current) use of oral hypoglycemic drugs; Z79.82 Long term (current) use of aspirin; Z79.01 Long term (current) use of anticoagulants; D64.9 Anemia, unspecified
CPT/HCPCS: 31720; 36415; 36600; 71010; 71020; 78452; 80048; 80053; 80061; 80069; 81001; 82330; 82550; 82553; 82565; 82803; 82805; 82947; 82962; 83036; 83540; 83550; 83605; 83735; 83880; 84132; 84145; 84295; 84443; 84484; 85014; 85018; 85025; 85347; 85384; 85610; 85730; 86850; 86900; 86901; 86920; 87641; 93005; 93017; 93312; 93320; 93325; 93458; 93880; 94002; 94010; 94640; 94660; 94762; 94770; 97110-GO; 97110-GP; 97162-GP; 97166-GO; 97530-GP; 97535-GO; 99152; 99285; A9270-GY; A9502; C1713; C1750; C1751; C1769; C1776; C1894; C2618; C8929; C9132; G0365; G8987-CK-GO; G8988-CJ-GO; J0153; J0360; J0690; J1644; J1956; J2150; J2250; J2370; J2405; J2440; J2720; J2920; J2930; J3010; J3370; J3475; J3480; P9035; P9045; P9047; Q9967